=== PATIENT | male | born 1955 | race Caucasian/White ===

== ENCOUNTER 2016-11-13 06:43 | Outpatient (CLI) | payer OTHER ==
[~2016-11-13] VITALS: Ht 162.6 cm; Wt 83.6 kg
[2016-11-13] MEDS ORDERED: VEDOLIZUMAB 300 MG in NS 250 ML IV ONE (07:00)
[2016-11-13] MEDS ORDERED: BENA1TAB32 PO (08:40)
[2016-11-13] MEDS ORDERED: DICY10CA13 PO (08:40)
[2016-11-13] MEDS ORDERED: ENTOCORT PO (08:40)
[2016-11-13] MEDS ORDERED: NEXI40GR PO (08:40)
[2016-11-13] MEDS ORDERED: QUES4POW PO (08:40)
[2016-11-13] MEDS ORDERED: FLON1SPR (08:40)
[2016-11-13] MEDS ORDERED: TRAM50TA2 PO (08:40)
== END 2016-11-13 09:20 | disposition home or self-care (01) ==
LOC: M INFU 06:43
PROVIDERS: ATTEND Internal Medicine Nephrology
DX: K50.10 Crohn's disease of large intestine without complications (principal); K50.00 Crohn's disease of small intestine without complications; Z88.8 Allergy status to other drugs, medicaments and biological substances
CPT/HCPCS: 96413; 96415; J3380

== ENCOUNTER 2016-11-27 06:45 | Outpatient (CLI) | payer OTHER ==
[~2016-11-27] VITALS: Ht 162.6 cm; Wt 83.6 kg
[~2016-11-27 06:45] MED LIST: BENA1TAB32 PO; DICY10CA13 PO; ENTOCORT PO; FLON1SPR; NEXI40GR PO; QUES4POW PO; TRAM50TA2 PO
[2016-11-27] MEDS ORDERED: VEDOLIZUMAB 300 MG in NS 250 ML IV ONE (07:30)
== END 2016-11-27 08:15 | disposition home or self-care (01) ==
LOC: M INFU 06:45
PROVIDERS: ATTEND Internal Medicine
DX: K50.80 Crohn's disease of both small and large intestine without complications (principal); Z88.8 Allergy status to other drugs, medicaments and biological substances; Z79.899 Other long term (current) drug therapy; Z87.891 Personal history of nicotine dependence
CPT/HCPCS: 96413; J3380

== ENCOUNTER 2016-12-25 06:50 | Outpatient (CLI) | payer OTHER ==
[2016-12-25] MEDS ORDERED: VEDOLIZUMAB 300 MG in NS 250 ML IV ONE (07:30)
== END 2016-12-25 08:50 | disposition home or self-care (01) ==
LOC: M INFU 06:50
PROVIDERS: ATTEND General Practice
DX: K50.80 Crohn's disease of both small and large intestine without complications (principal); Z88.8 Allergy status to other drugs, medicaments and biological substances; Z87.891 Personal history of nicotine dependence; Z79.899 Other long term (current) drug therapy
CPT/HCPCS: 96413; J3380

== ENCOUNTER → 2016-12-30 | Outpatient (CLI) | payer OTHER ==
[2016-12-30 19:51] LABS: ALBUMIN 3.8 GM/DL (3.2-5.2); ALBUMIN/GLOBULIN RATIO 1.31 (1.00-1.93); ALKALINE PHOSPHATASE 130 U/L (45-117); ALT/SGPT 25 U/L (12-78); ANION GAP 6 MEQ/L (8-16); AST/SGOT 16 U/L (15-37); BILIRUBIN,TOTAL 0.3 MG/DL (0.2-1.0); BLOOD UREA NITROGEN 19 MG/DL (7-18); CALCIUM LEVEL 8.4 MG/DL (8.8-10.2); CARBON DIOXIDE LEVEL 27 MEQ/L (21-32); CHLORIDE LEVEL 107 MEQ/L (98-107); CHOLESTEROL LEVEL 208 MG/DL (<200); CREATININE FOR GFR 1.15 MG/DL (0.70-1.30); GLOMERULAR FILTRATION RATE > 60.0 (>49); GLUCOSE, FASTING 82 MG/DL (80-110); SODIUM LEVEL 140 MEQ/L (136-145); TOTAL PROTEIN 6.7 GM/DL (6.4-8.2); TRIGLYCERIDES LEVEL 358 MG/DL (<150)
== END ==
LOC: M WUC 17:59
PROVIDERS: ATTEND Emergency Medicine
DX: Z00.00 Encounter for general adult medical examination without abnormal findings (principal); I10 Essential (primary) hypertension; E78.2 Mixed hyperlipidemia; E55.9 Vitamin D deficiency, unspecified

== ENCOUNTER 2017-02-19 06:57 | Outpatient (CLI) | payer OTHER ==
[~2017-02-19] VITALS: Ht 162.6 cm; Wt 83.6 kg
[2017-02-19] MEDS ORDERED: VEDOLIZUMAB 300 MG in NS 250 ML IV ONE (07:30)
== END 2017-02-19 08:30 | disposition home or self-care (01) ==
LOC: M INFU 06:57
PROVIDERS: ATTEND Internal Medicine
DX: K50.10 Crohn's disease of large intestine without complications (principal); K50.00 Crohn's disease of small intestine without complications; Z87.891 Personal history of nicotine dependence; Z88.8 Allergy status to other drugs, medicaments and biological substances; Z79.899 Other long term (current) drug therapy
CPT/HCPCS: 96413; J3380

== ENCOUNTER → 2017-05-08 | Outpatient (CLI) | payer OTHER ==
[2017-05-08 17:56] LABS: BASO # 0.1 10^3/uL (0.0-0.2); BASO % 0.5 % (0.0-1.0); EOS # 0.2 10^3/uL (0.0-0.50); EOS % 1.8 % (0.0-3.0); IMMATURE GRANULOCYTE % 0.5 % (0-0); LYMPH # 1.8 10^3/uL (1.5-4.5); LYMPH % 16.3 % (24.0-44.0); MEAN CORPUSCULAR HEMOGLOBIN 31.2 pg (27.0-33.0); MEAN CORPUSCULAR HGB CONC 34.4 g/dl (32.0-36.5); MEAN CORPUSCULAR VOLUME 90.7 fl (80.0-96.0); MONO # 0.9 10^3/uL (0.0-0.8); MONO % 8.6 % (0.0-5.0); NEUTROPHILS # 7.9 10^3/uL (1.8-7.7); NEUTROPHILS % 72.3 % (36.0-66.0); PLATELET COUNT, AUTOMATED 263 10^3/uL (150-450); RED CELL DISTRIBUTION WIDTH 13.1 % (11.5-14.5); WHITE BLOOD COUNT 10.9 10^3/uL (4.0-10.0)
[2017-05-08 18:19] LABS: ALBUMIN 3.7 GM/DL (3.2-5.2); ALBUMIN/GLOBULIN RATIO 1.37 (1.00-1.93); ALKALINE PHOSPHATASE 152 U/L (45-117); ALT/SGPT 65 U/L (12-78); AST/SGOT 103 U/L (15-37); BILIRUBIN,DIRECT 0.5 MG/DL (0.0-0.2); BILIRUBIN,TOTAL 0.9 MG/DL (0.2-1.0); TOTAL PROTEIN 6.4 GM/DL (6.4-8.2)
== END ==
LOC: M WUC 12:02
PROVIDERS: ATTEND Internal Medicine Gastroenterology
DX: K60.3 Anal fistula (principal); K21.9 Gastro-esophageal reflux disease without esophagitis

== ENCOUNTER 2017-05-10 06:49 | Outpatient (CLI) | payer OTHER ==
[~2017-05-10] VITALS: Ht 162.6 cm; Wt 83.6 kg
[2017-05-10] MEDS: VEDOLIZUMAB 300 MG in NS 250 ML IV ONE (07:57)
== END 2017-05-10 09:15 | disposition home or self-care (01) ==
LOC: M INFU 06:49
PROVIDERS: ATTEND Hospitalist
DX: K50.00 Crohn's disease of small intestine without complications (principal); Z96.1 Presence of intraocular lens; Z88.8 Allergy status to other drugs, medicaments and biological substances; Z79.899 Other long term (current) drug therapy; Z87.891 Personal history of nicotine dependence
CPT/HCPCS: 96413; J3380

== ENCOUNTER → 2017-06-29 | Outpatient (CLI) | payer OTHER ==
[2017-06-29 20:17] LABS: ALBUMIN 3.8 GM/DL (3.2-5.2); ALBUMIN/GLOBULIN RATIO 1.23 (1.00-1.93); BILIRUBIN,DIRECT 0.1 MG/DL (0.0-0.2); BILIRUBIN,TOTAL 0.4 MG/DL (0.2-1.0); TOTAL PROTEIN 6.9 GM/DL (6.4-8.2)
== END ==
LOC: M WUC 18:16
PROVIDERS: ATTEND Internal Medicine Gastroenterology
DX: K50.00 Crohn's disease of small intestine without complications (principal)

== ENCOUNTER 2017-07-05 07:10 | Outpatient (CLI) | payer OTHER ==
[~2017-07-05] VITALS: Ht 162.6 cm; Wt 83.6 kg
[2017-07-05] MEDS ORDERED: VEDOLIZUMAB 300 MG in NS 250 ML IV ONE (08:00)
== END 2017-07-05 08:50 | disposition home or self-care (01) ==
LOC: M INFU 07:10
PROVIDERS: ATTEND Internal Medicine
DX: K50.00 Crohn's disease of small intestine without complications (principal); Z86.79 Personal history of other diseases of the circulatory system; Z87.19 Personal history of other diseases of the digestive system; Z96.1 Presence of intraocular lens; Z87.891 Personal history of nicotine dependence; Z88.8 Allergy status to other drugs, medicaments and biological substances; Z79.899 Other long term (current) drug therapy
CPT/HCPCS: 96365; J3380

== ENCOUNTER → 2017-08-12 | Outpatient (CLI) | payer OTHER | LOC: M SLEEP 19:43 | DX: G47.30 Sleep apnea, unspecified (principal) | CPT/HCPCS: 95810 ==

== ENCOUNTER → 2017-08-24 | Outpatient (CLI) | payer OTHER | LOC: M EKG 07:56 | DX: Z01.818 Encounter for other preprocedural examination (principal) ==

== ENCOUNTER 2017-09-02 07:12 | Outpatient (CLI) | payer OTHER ==
[2017-09-02] MEDS: VEDOLIZUMAB 300 MG in NS 250 ML IV (07:52)
== END 2017-09-02 08:35 | disposition home or self-care (01) ==
LOC: M INFU 07:12
DX: K50.00 Crohn's disease of small intestine without complications (principal); Z79.891 Long term (current) use of opiate analgesic; Z79.899 Other long term (current) drug therapy; Z88.8 Allergy status to other drugs, medicaments and biological substances
CPT/HCPCS: J3380

== ENCOUNTER → 2017-09-13 | Outpatient (CLI) | payer OTHER | LOC: M LAB 17:19 | DX: R19.7 Diarrhea, unspecified (principal) ==

== ENCOUNTER → 2017-09-14 | Outpatient (REF) | payer OTHER | LOC: M LAB REF 09:09 | DX: R19.7 Diarrhea, unspecified (principal) | CPT/HCPCS: 87493 ==

== ENCOUNTER → 2017-09-25 | Outpatient (CLI) | payer OTHER ==
[2017-09-28 14:14] LABS: QUANTIFERON GOLD TB Negative (Negative); TB Test (QFT) Antigen 0.04 IU/mL (.); TB Test (QFT) Antigen Minus Ni <0.01 IU/mL (.); TB Test (QFT) Mitogen >10.00 IU/mL (.); TB Test (QFT) Nil 0.05 IU/mL (.)
== END ==
LOC: M WUC 11:08
DX: K50.00 Crohn's disease of small intestine without complications (principal)
CPT/HCPCS: 36415

== ENCOUNTER → 2017-10-09 | Outpatient (CLI) | payer OTHER ==
[2017-10-09 17:17] LABS: BASO # 0.1 10^3/uL (0.0-0.2); BASO % 0.4 % (0.0-1.0); EOS # 0.2 10^3/uL (0.0-0.50); EOS % 1.4 % (0.0-3.0); HEMATOCRIT 36.8 % (42.0-52.0); HEMOGLOBIN 12.9 g/dl (14.0-18.0); IMMATURE GRANULOCYTE % 0.3 % (0-3.0); LYMPH # 1.4 10^3/uL (1.5-4.5); LYMPH % 10.5 % (24.0-44.0); MEAN CORPUSCULAR HEMOGLOBIN 31.4 pg (27.0-33.0); MEAN CORPUSCULAR HGB CONC 35.1 g/dl (32.0-36.5); MEAN CORPUSCULAR VOLUME 89.5 fl (80.0-96.0); MONO # 0.8 10^3/uL (0.0-0.8); NEUTROPHILS # 10.7 10^3/uL (1.8-7.7); NEUTROPHILS % 81.4 % (36.0-66.0); PLATELET COUNT, AUTOMATED 259 10^3/uL (150-450); RED BLOOD COUNT 4.11 10^6/uL (4.30-6.10); WHITE BLOOD COUNT 13.2 10^3/uL (4.0-10.0)
[2017-10-09 17:28] LABS: ALBUMIN/GLOBULIN RATIO 1.48 (1.00-1.93); ALKALINE PHOSPHATASE 105 U/L (45-117); ALT/SGPT 23 U/L (12-78); AST/SGOT 23 U/L (7-37); BILIRUBIN,DIRECT 0.1 MG/DL (0.0-0.2); BILIRUBIN,TOTAL 0.5 MG/DL (0.2-1.0); C REACTIVE PROTEIN QUANTITATIV 0.42 MG/DL (0.00-0.30); TOTAL PROTEIN 6.7 GM/DL (6.4-8.2)
[2017-10-11 10:33] LABS: TOTAL 25(OH) VITAMIN D 29.5 NG/ML (30.0-100.0); VITAMIN B12 LEVEL 459 PG/ML (247-911)
== END ==
LOC: M WUC 11:46
DX: K50.00 Crohn's disease of small intestine without complications (principal); K50.10 Crohn's disease of large intestine without complications; K60.3 Anal fistula; K21.9 Gastro-esophageal reflux disease without esophagitis; K76.0 Fatty (change of) liver, not elsewhere classified
CPT/HCPCS: 82607

== ENCOUNTER 2017-10-21 16:30 | Outpatient (CLI) | payer OTHER ==
[2017-10-21] MEDS: VEDOLIZUMAB 300 MG in NS 250 ML IV (17:08)
== END 2017-10-21 17:50 | disposition home or self-care (01) ==
LOC: M INFU 16:30
DX: K50.00 Crohn's disease of small intestine without complications (principal); I10 Essential (primary) hypertension; K44.9 Diaphragmatic hernia without obstruction or gangrene; Z79.891 Long term (current) use of opiate analgesic; Z79.899 Other long term (current) drug therapy; Z88.8 Allergy status to other drugs, medicaments and biological substances; Z87.891 Personal history of nicotine dependence
CPT/HCPCS: J3380

== ENCOUNTER 2017-12-02 06:51 | Outpatient (CLI) | payer OTHER ==
[2017-12-02] MEDS: VEDOLIZUMAB 300 MG in NS 250 ML IV (07:35)
== END 2017-12-02 08:25 | disposition home or self-care (01) ==
LOC: M INFU 06:51
DX: K50.90 Crohn's disease, unspecified, without complications (principal); I10 Essential (primary) hypertension; K44.9 Diaphragmatic hernia without obstruction or gangrene; D64.9 Anemia, unspecified; Z79.891 Long term (current) use of opiate analgesic; Z79.899 Other long term (current) drug therapy; Z88.8 Allergy status to other drugs, medicaments and biological substances; Z87.891 Personal history of nicotine dependence
CPT/HCPCS: J3380

== ENCOUNTER → 2018-01-08 | Outpatient (CLI) | payer OTHER ==
[2018-01-08 18:15] LABS: ALBUMIN 3.8 GM/DL (3.2-5.2); ALBUMIN/GLOBULIN RATIO 1.27 (1.00-1.93); ALKALINE PHOSPHATASE 104 U/L (45-117); ALT/SGPT 24 U/L (12-78); ANION GAP 9 MEQ/L (8-16); AST/SGOT 20 U/L (7-37); BILIRUBIN,TOTAL 0.5 MG/DL (0.2-1.0); BLOOD UREA NITROGEN 18 MG/DL (7-18); CALCIUM LEVEL 8.6 MG/DL (8.8-10.2); CARBON DIOXIDE LEVEL 28 MEQ/L (21-32); CHLORIDE LEVEL 104 MEQ/L (98-107); CHOLESTEROL LEVEL 174 MG/DL (<200); CHOLESTEROL RISK RATIO 3.625 (<5); GLOMERULAR FILTRATION RATE 59.4 (>49); GLUCOSE, FASTING 84 MG/DL (70-100); HDL CHOLESTEROL 48 MG/DL (>40); LDL CHOLESTEROL 63.2 MG/DL (<100); NON-HDL-C 126 MG/DL; POTASSIUM SERUM 4.1 MEQ/L (3.5-5.1); SODIUM LEVEL 141 MEQ/L (136-145); TOTAL PROTEIN 6.8 GM/DL (6.4-8.2); TRIGLYCERIDES LEVEL 314 MG/DL (<150)
[2018-01-10 10:05] LABS: TOTAL 25(OH) VITAMIN D 31.4 NG/ML (30.0-100.0)
== END ==
LOC: M WUC 11:30
DX: I10 Essential (primary) hypertension (principal); E78.2 Mixed hyperlipidemia; E55.9 Vitamin D deficiency, unspecified
CPT/HCPCS: 80053

== ENCOUNTER 2018-01-13 07:01 | Outpatient (CLI) | payer OTHER ==
[2018-01-13] MEDS: VEDOLIZUMAB 300 MG in NS 250 ML IV (08:04)
== END 2018-01-13 08:40 | disposition home or self-care (01) ==
LOC: M INFU 07:01
DX: K50.00 Crohn's disease of small intestine without complications (principal); I10 Essential (primary) hypertension; K44.9 Diaphragmatic hernia without obstruction or gangrene; K21.9 Gastro-esophageal reflux disease without esophagitis; Z79.899 Other long term (current) drug therapy; Z79.891 Long term (current) use of opiate analgesic; Z88.8 Allergy status to other drugs, medicaments and biological substances; Z87.891 Personal history of nicotine dependence
CPT/HCPCS: J3380

== ENCOUNTER 2018-02-24 07:12 | Outpatient (CLI) | payer OTHER ==
[2018-02-24] MEDS: VEDOLIZUMAB 300 MG in NS 250 ML IV (08:20)
== END 2018-02-24 09:15 | disposition home or self-care (01) ==
LOC: M INFU 07:12
DX: K50.00 Crohn's disease of small intestine without complications (principal); Z79.899 Other long term (current) drug therapy; Z88.8 Allergy status to other drugs, medicaments and biological substances
CPT/HCPCS: J3380

== ENCOUNTER 2018-04-07 06:50 | Outpatient (CLI) | payer OTHER ==
[2018-04-07] MEDS: VEDOLIZUMAB 300 MG in NS 250 ML IV (07:44)
== END 2018-04-07 08:30 | disposition home or self-care (01) ==
LOC: M INFU 06:50
DX: K50.80 Crohn's disease of both small and large intestine without complications (principal); K44.9 Diaphragmatic hernia without obstruction or gangrene; K76.0 Fatty (change of) liver, not elsewhere classified; D50.9 Iron deficiency anemia, unspecified; M12.9 Arthropathy, unspecified; Z79.891 Long term (current) use of opiate analgesic; Z79.899 Other long term (current) drug therapy; Z88.8 Allergy status to other drugs, medicaments and biological substances; Z90.49 Acquired absence of other specified parts of digestive tract; Z87.19 Personal history of other diseases of the digestive system
CPT/HCPCS: J3380

== ENCOUNTER 2018-05-19 06:53 | Outpatient (CLI) | payer OTHER ==
[2018-05-19] MEDS: VEDOLIZUMAB 300 MG in NS 250 ML IV (08:05)
== END 2018-05-19 08:50 | disposition home or self-care (01) ==
LOC: M INFU 06:53
DX: K50.00 Crohn's disease of small intestine without complications (principal); Z79.899 Other long term (current) drug therapy; Z88.8 Allergy status to other drugs, medicaments and biological substances
CPT/HCPCS: J3380

== ENCOUNTER → 2018-05-23 | Outpatient (CLI) | payer OTHER ==
[2018-05-23 19:46] LABS: BASO % 0.3 % (0.0-1.0); EOS # 0.5 10^3/uL (0.0-0.50); EOS % 4.5 % (0.0-3.0); HEMATOCRIT 36.1 % (42.0-52.0); HEMOGLOBIN 12.7 g/dl (13.5-17.5); IMMATURE GRANULOCYTE % 0.5 % (0-3.0); LYMPH % 8.6 % (24.0-44.0); MEAN CORPUSCULAR HEMOGLOBIN 31.2 pg (27.0-33.0); MEAN CORPUSCULAR HGB CONC 35.2 g/dl (32.0-36.5); MEAN CORPUSCULAR VOLUME 88.7 fl (80.0-96.0); MONO % 9.3 % (0.0-5.0); NEUTROPHILS # 8.5 10^3/uL (1.8-7.7); NEUTROPHILS % 76.8 % (36.0-66.0); PLATELET COUNT, AUTOMATED 207 10^3/uL (150-450); RED BLOOD COUNT 4.07 10^6/uL (4.30-6.10); RED CELL DISTRIBUTION WIDTH 12.8 % (11.5-14.5); WHITE BLOOD COUNT 11.1 10^3/uL (4.0-10.0)
[2018-05-23 19:58] LABS: ALBUMIN 3.6 GM/DL (3.2-5.2); ALBUMIN/GLOBULIN RATIO 1.13 (1.00-1.93); ALKALINE PHOSPHATASE 109 U/L (45-117); ALT/SGPT 29 U/L (12-78); AST/SGOT 24 U/L (7-37); BILIRUBIN,DIRECT 0.2 MG/DL (0.0-0.2); BILIRUBIN,TOTAL 0.8 MG/DL (0.2-1.0); C REACTIVE PROTEIN QUANTITATIV 3.98 MG/DL (0.00-0.30); TOTAL PROTEIN 6.8 GM/DL (6.4-8.2)
[2018-05-23 20:07] LABS: ERYTHROCYTE SEDIMENTATION RATE 26 mm/hr (0-20)
[2018-05-24 14:40] LABS: ANION GAP 10 MEQ/L (8-16); BLOOD UREA NITROGEN 17 MG/DL (7-18); CALCIUM LEVEL 8.7 MG/DL (8.8-10.2); CARBON DIOXIDE LEVEL 26 MEQ/L (21-32); CHLORIDE LEVEL 100 MEQ/L (98-107); CREATININE FOR GFR 1.33 MG/DL (0.70-1.30); GLOMERULAR FILTRATION RATE 57.6 (>49); GLUCOSE, FASTING 112 MG/DL (70-100); POTASSIUM SERUM 3.7 MEQ/L (3.5-5.1); SODIUM LEVEL 136 MEQ/L (136-145)
== END ==
LOC: M WUC 18:08
DX: K50.00 Crohn's disease of small intestine without complications (principal)
CPT/HCPCS: 80076

== ENCOUNTER → 2018-05-25 | Outpatient (REF) | payer OTHER | LOC: M LAB REF 09:16 | DX: K50.00 Crohn's disease of small intestine without complications (principal) | CPT/HCPCS: 83993 ==

== ENCOUNTER 2018-06-30 06:58 | Outpatient (CLI) | payer OTHER ==
[2018-06-30] MEDS: VEDOLIZUMAB 300 MG in NS 250 ML IV (07:32)
== END 2018-06-30 08:15 | disposition home or self-care (01) ==
LOC: M INFU 06:58
DX: K50.00 Crohn's disease of small intestine without complications (principal); Z88.8 Allergy status to other drugs, medicaments and biological substances
CPT/HCPCS: J3380

== ENCOUNTER → 2018-07-15 | Outpatient (CLI) | payer OTHER ==
[~2018-07-15] MED LIST changes: +CENTTAB16 PO; +PROSCAP PO; +PROTPAK PO; +VITA200016 PO; +VITA500C19 PO; +[UNRECOGNIZED DRUG - OTHER] PO; +[UNRECOGNIZED DRUG - OTHER] PO
[2018-07-15 14:18] LABS: BASO % 0.4 % (0.0-1.0); EOS # 0.4 10^3/uL (0.0-0.50); EOS % 3.6 % (0.0-3.0); HEMATOCRIT 36.1 % (42.0-52.0); HEMOGLOBIN 12.6 g/dl (13.5-17.5); LYMPH # 1.9 10^3/uL (1.5-4.5); LYMPH % 18.1 % (24.0-44.0); MEAN CORPUSCULAR HEMOGLOBIN 31.2 pg (27.0-33.0); MEAN CORPUSCULAR HGB CONC 34.9 g/dl (32.0-36.5); MEAN CORPUSCULAR VOLUME 89.4 fl (80.0-96.0); MONO # 0.7 10^3/uL (0.0-0.8); MONO % 6.3 % (0.0-5.0); NEUTROPHILS # 7.3 10^3/uL (1.8-7.7); NEUTROPHILS % 70.9 % (36.0-66.0); PLATELET COUNT, AUTOMATED 252 10^3/uL (150-450); RED BLOOD COUNT 4.04 10^6/uL (4.30-6.10); WHITE BLOOD COUNT 10.3 10^3/uL (4.0-10.0)
[2018-07-15 14:48] LABS: BLOOD UREA NITROGEN 17 MG/DL (7-18); CALCIUM LEVEL 8.6 MG/DL (8.8-10.2); CARBON DIOXIDE LEVEL 27 MEQ/L (21-32); CHLORIDE LEVEL 103 MEQ/L (98-107); CREATININE FOR GFR 1.15 MG/DL (0.70-1.30); GLOMERULAR FILTRATION RATE > 60.0 (>49); GLUCOSE, FASTING 87 MG/DL (70-100); POTASSIUM SERUM 4.1 MEQ/L (3.5-5.1); SODIUM LEVEL 139 MEQ/L (136-145)
== END ==
LOC: M WUC 13:08
PROVIDERS: ATTEND Family Medicine
DX: N17.9 Acute kidney failure, unspecified (principal)

== ENCOUNTER 2018-08-11 06:51 | Outpatient (CLI) | payer OTHER ==
[~2018-08-11] VITALS: Ht 162.6 cm; Wt 83.6 kg
[2018-08-11 07:00] VITALS: BP 143/67
[2018-08-11] MEDS ORDERED: VEDOLIZUMAB 300 MG in NS 250 ML IV ONE (08:00)
[2018-08-11 08:38] VITALS: BP 132/70
== END 2018-08-11 08:40 | disposition home or self-care (01) ==
LOC: M INFU 06:51
PROVIDERS: ATTEND Internal Medicine
DX: K50.00 Crohn's disease of small intestine without complications (principal); Z88.8 Allergy status to other drugs, medicaments and biological substances

== ENCOUNTER → 2018-08-18 | Outpatient (CLI) | payer OTHER ==
[2018-08-18 20:30] LABS: BASO % 0.4 % (0.0-1.0); EOS # 0.3 10^3/uL (0.0-0.50); EOS % 2.7 % (0.0-3.0); HEMATOCRIT 37.9 % (42.0-52.0); HEMOGLOBIN 12.8 g/dl (13.5-17.5); LYMPH # 1.8 10^3/uL (1.5-4.5); LYMPH % 18.8 % (24.0-44.0); MEAN CORPUSCULAR HEMOGLOBIN 30.8 pg (27.0-33.0); MEAN CORPUSCULAR HGB CONC 33.8 g/dl (32.0-36.5); MEAN CORPUSCULAR VOLUME 91.1 fl (80.0-96.0); MONO # 0.8 10^3/uL (0.0-0.8); MONO % 8.2 % (0.0-5.0); NEUTROPHILS # 6.5 10^3/uL (1.8-7.7); NEUTROPHILS % 69.3 % (36.0-66.0); PLATELET COUNT, AUTOMATED 295 10^3/uL (150-450); RED BLOOD COUNT 4.16 10^6/uL (4.30-6.10); WHITE BLOOD COUNT 9.5 10^3/uL (4.0-10.0)
[2018-08-18 20:33] LABS: ALBUMIN 3.8 GM/DL (3.2-5.2); BILIRUBIN,DIRECT 0.1 MG/DL (0.0-0.2); BILIRUBIN,TOTAL 0.4 MG/DL (0.2-1.0); C REACTIVE PROTEIN QUANTITATIV 0.63 MG/DL (0.00-0.30); TOTAL PROTEIN 6.6 GM/DL (6.4-8.2)
[2018-08-18 20:42] LABS: TOTAL 25(OH) VITAMIN D 34.8 NG/ML (30.0-100.0)
== END ==
LOC: M WUC 18:11
PROVIDERS: ATTEND Internal Medicine Gastroenterology
DX: K50.00 Crohn's disease of small intestine without complications (principal); K21.9 Gastro-esophageal reflux disease without esophagitis

== ENCOUNTER 2018-09-22 07:00 | Outpatient (CLI) | payer OTHER ==
[~2018-09-22] VITALS: Ht 161.3 cm; Wt 83.6 kg
[2018-09-22 07:05] VITALS: BP 150/66
[2018-09-22] MEDS ORDERED: VEDOLIZUMAB 300 MG in NS 250 ML IV ONE (07:15)
[2018-09-22 08:25] VITALS: BP 137/71
== END 2018-09-22 08:30 | disposition home or self-care (01) ==
LOC: M INFU 07:00
PROVIDERS: ATTEND Internal Medicine
DX: K50.00 Crohn's disease of small intestine without complications (principal); Z88.8 Allergy status to other drugs, medicaments and biological substances
CPT/HCPCS: 96365; J3380

== ENCOUNTER 2019-01-24 17:11 | Outpatient (CLI) | payer OTHER ==
[~2019-01-24] VITALS: Ht 162.6 cm; Wt 81.0 kg
[2019-01-24] MEDS ORDERED: VEDOLIZUMAB 300 MG in NS 250 ML IV ONE (17:15)
[2019-01-24 17:54] VITALS: BP 142/69
[2019-01-24 18:18] VITALS: BP 136/73
== END 2019-01-24 18:20 | disposition home or self-care (01) ==
LOC: M INFU 17:11
PROVIDERS: ATTEND Internal Medicine Gastroenterology
DX: K50.00 Crohn's disease of small intestine without complications (principal); Z88.8 Allergy status to other drugs, medicaments and biological substances
CPT/HCPCS: 96365; J3380

== ENCOUNTER 2019-02-18 09:58 | Emergency (ER) | payer OTHER ==
[~2019-02-18] VITALS: Ht 165.1 cm; Wt 81.8 kg
[2019-02-18] MEDS ORDERED: MINO100C4 (10:04)
[2019-02-18] MEDS ORDERED: K-TA10TA2 PO (10:04)
[2019-02-18] MEDS ORDERED: COLC1TAB13 PO (11:04)
[2019-02-18 11:08] VITALS: BP 130/68
== END 2019-02-18 11:15 | disposition home or self-care (01) ==
LOC: M ED 09:58
DX: M79.675 Pain in left toe(s) (principal); I10 Essential (primary) hypertension; K50.90 Crohn's disease, unspecified, without complications; K76.0 Fatty (change of) liver, not elsewhere classified; K21.9 Gastro-esophageal reflux disease without esophagitis; Z79.899 Other long term (current) drug therapy; Z88.8 Allergy status to other drugs, medicaments and biological substances

== ENCOUNTER → 2019-02-20 | Outpatient (CLI) | payer OTHER ==
[~2019-02-20] MED LIST changes: +COLC1TAB13 PO; +K-TA10TA2 PO; +MINO100C4
--- NOTE | 2019-02-20 18:41 | REP ---
Clinical: Pain. Doubt. Technique: AP, lateral, bilateral oblique views of the left foot. Findings: Osseous structures, joint spaces and surrounding soft tissues are relatively normal for age and without overt osteoarthritic or inflammatory arthritic changes. No periarticular erosive changes or soft tissue swelling and no chondrocalcinosis identified. Known foreign body. Impression: Mild age-related changes. Electronically Signed by Mandeep Reed MD 02/20/2019 06:32 P
== END ==
LOC: M WUC 17:40
PROVIDERS: ATTEND Nurse Practitioner Family
DX: M10.9 Gout, unspecified (principal)

== ENCOUNTER → 2019-03-02 | Outpatient (CLI) | payer OTHER ==
[~2019-03-02] MED LIST changes: +BENA40TA PO; +BUDE3CAP PO; +ENTY1INJ IV; +FLAG500T PO; +IRON65TA2 PO; +MAGN400C PO; +PROS5TAB PO
[2019-03-02 07:18] LABS: HEMATOCRIT 35.8 % (42.0-52.0); HEMOGLOBIN 12.6 g/dl (13.5-17.5); MEAN CORPUSCULAR HGB CONC 35.2 g/dl (32.0-36.5); PLATELET COUNT, AUTOMATED 226 10^3/uL (150-450); RED BLOOD COUNT 4.07 10^6/uL (4.30-6.10); WHITE BLOOD COUNT 9.2 10^3/uL (4.0-10.0)
[2019-03-02 07:51] LABS: ALBUMIN 3.5 GM/DL (3.2-5.2); BILIRUBIN,TOTAL 0.6 MG/DL (0.2-1.0); CALCIUM LEVEL 8.8 MG/DL (8.8-10.2); CHOLESTEROL RISK RATIO 3.282 (<5); CREATININE FOR GFR 1.3 MG/DL (0.70-1.30); GLOMERULAR FILTRATION RATE 59.2 (>49); POTASSIUM SERUM 4.1 MEQ/L (3.5-5.1); PROSTATIC SPECIFIC AG MONITOR 8.75 NG/ML (< 4.00); TOTAL PROTEIN 6.4 GM/DL (6.4-8.2)
== END ==
LOC: M LAB 06:47
PROVIDERS: ATTEND Nurse Practitioner Family
DX: I10 Essential (primary) hypertension (principal); Z12.5 Encounter for screening for malignant neoplasm of prostate

== ENCOUNTER 2019-03-07 17:13 | Outpatient (CLI) | payer OTHER ==
[~2019-03-07] VITALS: Ht 162.6 cm; Wt 81.8 kg
[~2019-03-07 17:13] MED LIST changes: -BENA40TA PO; -BUDE3CAP PO; -ENTY1INJ IV; -FLAG500T PO; -IRON65TA2 PO; -MAGN400C PO; -PROS5TAB PO
[2019-03-07] MEDS ORDERED: VEDOLIZUMAB 300 MG in NS 250 ML IV ONE (17:30)
[2019-03-07 17:37] VITALS: BP 126/62
[2019-03-07 18:19] VITALS: BP 126/66
== END 2019-03-07 18:25 | disposition home or self-care (01) ==
LOC: M INFU 17:13
PROVIDERS: ATTEND Internal Medicine Gastroenterology
DX: K50.00 Crohn's disease of small intestine without complications (principal); Z88.8 Allergy status to other drugs, medicaments and biological substances
CPT/HCPCS: 96365; J3380

== ENCOUNTER → 2019-03-20 | Outpatient (REF) | payer OTHER ==
[~2019-03-20] MED LIST changes: +BUDE3CAP PO; +FLAG500T PO
== END ==
LOC: M SMT 17:01
PROVIDERS: ATTEND Nurse Practitioner Family
DX: R97.20 Elevated prostate specific antigen [PSA] (principal)
CPT/HCPCS: 51798; 87086; G0463

== ENCOUNTER 2019-03-30 08:08 | Emergency (ER) | payer MEDICARE, OTHER ==
[~2019-03-30] VITALS: Ht 162.6 cm; Wt 84.0 kg
[~2019-03-30 08:08] MED LIST changes: -BUDE3CAP PO; -FLAG500T PO
[2019-03-30] MEDS ORDERED: NS 1,000 ML IV ONE (09:00)
[2019-03-30] MEDS ORDERED: ONDANSETRON 4MG/2ML VIAL (J2405) IV PRN (09:00)
[2019-03-30 09:06] LABS: HEMOGLOBIN 13.1 g/dl (13.5-17.5); MEAN CORPUSCULAR HEMOGLOBIN 31.2 pg (27.0-33.0); MEAN CORPUSCULAR HGB CONC 35.4 g/dl (32.0-36.5); MEAN CORPUSCULAR VOLUME 88.1 fl (80.0-96.0); PLATELET COUNT, AUTOMATED 190 10^3/uL (150-450); WHITE BLOOD COUNT 9.7 10^3/uL (4.0-10.0)
[2019-03-30 09:26] LABS: EOSINOPHILS 6 % (0-3); LYMPHOCYTES 9 % (16-44); MONOCYTES 7 % (0-5); NEUTROPHILS 53 % (28-66); PLATELET ESTIMATE NORMAL (NORMAL)
[2019-03-30 09:27] LABS: ANISOCYTOSIS 1+
[2019-03-30 09:40] LABS: ALBUMIN 3.3 GM/DL (3.2-5.2); BILIRUBIN,DIRECT 0.5 MG/DL (0.0-0.2); BILIRUBIN,TOTAL 1.3 MG/DL (0.2-1.0); CALCIUM LEVEL 8.5 MG/DL (8.8-10.2); CREATININE FOR GFR 1.99 MG/DL (0.70-1.30); GLOMERULAR FILTRATION RATE 36.2 (>49); POTASSIUM SERUM 3.6 MEQ/L (3.5-5.1); TOTAL PROTEIN 6.6 GM/DL (6.4-8.2)
[2019-03-30] MEDS ORDERED: PIPERACILLIN/TAZOBACTAM SOD 4.5 GM in D5W MINI-BAG PLUS 50 ML IV ONE (10:00)
[2019-03-30] MEDS: GASTROGRAFIN SOLUTION 30ML PO SCH ×2 (10:38→11:16)
--- NOTE | 2019-03-30 12:18 | REP ---
Clinical: Abdominal pain with history of Crohn disease. Technique: Axial images from the lung bases to the pubic symphysis using oral contrast as per protocol. Coronal and sagittal re-formations obtained. Comparison: 05/25/2019. Findings: Lung bases demonstrate minimal chronic changes. Mild fatty infiltration to the liver suggested. Spleen, pancreas, gallbladder, bilateral adrenal glands and right kidney are normal. Left kidney includes 12 mm lower pole nonobstructing calculus. The enteric system demonstrates segment segment of small bowel with mucosal thickening in the right mid/lower abdomen (images [id number]) along with very subtle mesenteric stranding and mildly prominent mesenteric lymph nodes which may represent a mild acute Crohn's flare-up. No associated perienteric stranding or obstruction. No free air or free fluid/drainable collection noted. Pelvis demonstrates enlarged prostate gland measuring approximately 4.5 cm maximal diameter with mass effect on the base of the bladder. No ascites. No free air. No retroperitoneal adenopathy. Abdominal aorta without aneurysm. Musculoskeletal structures demonstrate degenerative changes without focal abnormality. Impression: 1. Cannot exclude a mild/early Crohn's flare-up involving the loop of small bowel in the right lower abdomen. 2. Stable 12 mm nonobstructing left renal calculus. Electronically Signed by Mandeep Reed MD 03/30/2019 12:10 P
[2019-03-30] MEDS ORDERED: methylPREDNISolone INJ 125 MG/2 ML VIAL (J2930) IV ONE (13:00)
[2019-03-30] MEDS ORDERED: metroNIDAZOLE 500 MG in IV 1 EA IV ONE (13:00)
[2019-03-30 15:39] LABS: HEMATOCRIT 32.8 % (42.0-52.0); HEMOGLOBIN 11.6 g/dl (13.5-17.5); MEAN CORPUSCULAR HEMOGLOBIN 31.4 pg (27.0-33.0); MEAN CORPUSCULAR HGB CONC 35.4 g/dl (32.0-36.5); MEAN CORPUSCULAR VOLUME 88.6 fl (80.0-96.0); PLATELET COUNT, AUTOMATED 165 10^3/uL (150-450)
[2019-03-30 16:03] LABS: EOSINOPHILS 6 % (0-3); LYMPHOCYTES 4 % (16-44); METAMYELOCYTES 2 % (0-0); MONOCYTES 4 % (0-5); NEUTROPHILS 75 % (28-66); PLATELET ESTIMATE NORMAL (NORMAL)
[2019-03-30 16:04] LABS: OVALOCYTES 1+
[2019-03-30] MEDS ORDERED: BUDE3CAP PO (16:38)
[2019-03-30] MEDS ORDERED: FLAG500T PO (16:38)
[2019-03-30 17:09] VITALS: BP 130/60
== END 2019-03-30 17:11 | disposition home or self-care (01) ==
LOC: M ED 08:08
DX: K50.919 Crohn's disease, unspecified, with unspecified complications (principal); E86.0 Dehydration; N20.0 Calculus of kidney; D50.9 Iron deficiency anemia, unspecified; I10 Essential (primary) hypertension; K21.9 Gastro-esophageal reflux disease without esophagitis; Z79.899 Other long term (current) drug therapy; Z88.8 Allergy status to other drugs, medicaments and biological substances
CPT/HCPCS: 74176; 80048; 80076; 83605; 83690; 85025; 87040; 87507; 93041; 96360; 96365; 96366; 96367; 96375; 99284; J2405; J2543; J2930; Q9963

== ENCOUNTER 2019-04-21 16:58 | Outpatient (CLI) | payer MEDICARE, OTHER ==
[~2019-04-21] VITALS: Ht 162.6 cm; Wt 83.2 kg
[~2019-04-21 16:58] MED LIST changes: +BUDE3CAP PO; +FLAG500T PO
[2019-04-21 17:09] VITALS: BP 143/73
[2019-04-21] MEDS ORDERED: PROS5TAB PO (17:21)
[2019-04-21] MEDS ORDERED: VEDOLIZUMAB 300 MG in NS 250 ML IV ONE (17:45)
[2019-04-21 18:40] VITALS: BP 150/76
== END 2019-04-21 18:43 | disposition home or self-care (01) ==
LOC: M INFU 16:58
PROVIDERS: ATTEND Internal Medicine Gastroenterology
DX: K50.00 Crohn's disease of small intestine without complications (principal)
CPT/HCPCS: 96365; J3380

== ENCOUNTER 2019-06-27 06:47 | Outpatient (CLI) | payer MEDICARE, OTHER ==
[~2019-06-27] VITALS: Ht 162.6 cm; Wt 63.0 kg
[~2019-06-27 06:47] MED LIST changes: +PROS5TAB PO
[2019-06-27 07:00] VITALS: BP 122/58
[2019-06-27] MEDS ORDERED: HYDROCORTISONE 100 MG/2 ML VIAL (J1720 PER 1) IV ONE (07:00)
[2019-06-27] MEDS ORDERED: diphenhydrAMINE 25 MG CAP PO ONE (07:00)
[2019-06-27] MEDS ORDERED: VEDOLIZUMAB 300 MG in NS 250 ML IV ONE (07:00)
[2019-06-27] MEDS ORDERED: diphenhydrAMINE INJ 50MG/ML VIAL (J1200) IV ONE (07:30)
[2019-06-27] MEDS ORDERED: BENA40TA PO (07:46)
[2019-06-27] MEDS ORDERED: IRON65TA2 PO (07:50)
[2019-06-27] MEDS ORDERED: MAGN400C PO (07:51)
[2019-06-27] MEDS ORDERED: ENTY1INJ IV (07:52)
[2019-06-27 08:45] VITALS: BP 131/69
[2019-06-27 09:10] VITALS: BP 128/72
== END 2019-06-27 09:10 | disposition home or self-care (01) ==
LOC: M INFU 06:47
PROVIDERS: ATTEND Internal Medicine Gastroenterology
DX: K50.90 Crohn's disease, unspecified, without complications (principal); Z88.8 Allergy status to other drugs, medicaments and biological substances
CPT/HCPCS: 96365; 96375; J1200; J1720; J3380

== ENCOUNTER 2019-08-08 06:42 | Outpatient (CLI) | payer MEDICARE, OTHER ==
[~2019-08-08] VITALS: Ht 162.6 cm; Wt 83.2 kg
[~2019-08-08 06:42] MED LIST changes: +BENA40TA PO; +ENTY1INJ IV; +IRON65TA2 PO; +MAGN400C PO
[2019-08-08 07:06] VITALS: BP 126/62
[2019-08-08] MEDS ORDERED: VEDOLIZUMAB 300 MG in NS 250 ML IV ONE (07:30)
[2019-08-08 07:58] VITALS: BP 129/60
== END 2019-08-08 08:00 | disposition home or self-care (01) ==
LOC: M INFU 06:42
PROVIDERS: ATTEND Internal Medicine Gastroenterology
DX: K50.00 Crohn's disease of small intestine without complications (principal); Z88.8 Allergy status to other drugs, medicaments and biological substances; Z88.9 Allergy status to unspecified drugs, medicaments and biological substances
CPT/HCPCS: 96365; J3380

== ENCOUNTER 2019-09-19 06:45 | Outpatient (CLI) | payer MEDICARE, OTHER ==
[~2019-09-19] VITALS: Ht 162.6 cm; Wt 83.2 kg
[2019-09-19] MEDS ORDERED: HYDROCORTISONE 100 MG/2 ML VIAL (J1720 PER 1) IV ONE (07:00)
[2019-09-19] MEDS ORDERED: diphenhydrAMINE INJ 50MG/ML VIAL (J1200) IV ONE (07:00)
[2019-09-19 07:06] VITALS: BP 151/65
[2019-09-19] MEDS ORDERED: VEDOLIZUMAB 300 MG in NS 250 ML IV ONE (07:30)
[2019-09-19 08:01] VITALS: BP 126/69
== END 2019-09-19 08:00 | disposition home or self-care (01) ==
LOC: M INFU 06:45
PROVIDERS: ATTEND Internal Medicine Gastroenterology
DX: K50.90 Crohn's disease, unspecified, without complications (principal); Z88.9 Allergy status to unspecified drugs, medicaments and biological substances
CPT/HCPCS: 96365; J3380

== ENCOUNTER 2019-10-31 16:35 | Outpatient (CLI) | payer MEDICARE, OTHER ==
[~2019-10-31] VITALS: Ht 162.6 cm; Wt 83.2 kg
[2019-10-31 16:46] VITALS: BP 140/63
[2019-10-31] MEDS ORDERED: diphenhydrAMINE 50MG/ML VIAL (J1200) IV ONE (17:00)
[2019-10-31] MEDS ORDERED: HYDROCORTISONE 100 MG/2 ML VIAL (J1720 PER 1) IV ONE (17:00)
[2019-10-31] MEDS ORDERED: VEDOLIZUMAB 300 MG in NS 250 ML IV ONE (17:30)
[2019-10-31 17:43] VITALS: BP 123/68
== END 2019-10-31 17:40 | disposition home or self-care (01) ==
LOC: M INFU 16:35
PROVIDERS: ATTEND Internal Medicine Gastroenterology
DX: K50.00 Crohn's disease of small intestine without complications (principal)
CPT/HCPCS: 96365; J3380

== ENCOUNTER 2019-12-12 16:35 | Outpatient (CLI) | payer MEDICARE, OTHER ==
[~2019-12-12] VITALS: Ht 162.6 cm; Wt 83.2 kg
[2019-12-12 16:56] VITALS: BP 125/60
[2019-12-12] MEDS ORDERED: HYDROCORTISONE 100 MG/2 ML VIAL (J1720 PER 1) IV ONE (17:00)
[2019-12-12] MEDS ORDERED: diphenhydrAMINE 50MG/ML VIAL (J1200) IV ONE (17:00)
[2019-12-12] MEDS ORDERED: VEDOLIZUMAB 300 MG in NS 250 ML IV ONE (17:30)
[2019-12-12 17:42] VITALS: BP 147/69
== END 2019-12-12 17:45 ==
LOC: M INFU 16:35
PROVIDERS: ATTEND Internal Medicine Gastroenterology
DX: K50.90 Crohn's disease, unspecified, without complications (principal); Z88.8 Allergy status to other drugs, medicaments and biological substances
CPT/HCPCS: 96365; J3380

== ENCOUNTER 2020-01-23 16:20 | Outpatient (CLI) | payer MEDICARE, OTHER ==
[~2020-01-23] VITALS: Ht 162.6 cm; Wt 84.1 kg
[2020-01-23 16:45] VITALS: BP 141/63
[2020-01-23] MEDS ORDERED: diphenhydrAMINE 50MG/ML VIAL (J1200) IV ONE (17:15)
[2020-01-23] MEDS ORDERED: VEDOLIZUMAB 300 MG in NS 250 ML IV ONE (17:15)
[2020-01-23] MEDS ORDERED: HYDROCORTISONE 100 MG/2 ML VIAL (J1720 PER 1) IV ONE (17:15)
[2020-01-23] MEDS ORDERED: LASI20TA3 PO (17:38)
[2020-01-23 18:13] VITALS: BP 121/64
== END 2020-01-23 18:13 | disposition home or self-care (01) ==
LOC: M INFU 16:20
PROVIDERS: ATTEND Internal Medicine Gastroenterology
DX: K50.00 Crohn's disease of small intestine without complications (principal); Z88.8 Allergy status to other drugs, medicaments and biological substances
CPT/HCPCS: 96365; J3380

== ENCOUNTER 2020-03-05 17:05 | Outpatient (CLI) | payer MEDICARE, OTHER ==
[~2020-03-05 17:05] MED LIST changes: +LASI20TA3 PO; +VEDOLIZUMAB 300MG VIAL (ENTYVIO) (J3380 PER 1MG) ONE
== END 2020-03-05 18:10 ==
LOC: M INFU 17:05
PROVIDERS: ATTEND Internal Medicine Gastroenterology
DX: K50.00 Crohn's disease of small intestine without complications (principal)
CPT/HCPCS: 96365; J3380

== ENCOUNTER 2020-04-17 16:57 | Outpatient (CLI) | payer MEDICARE, OTHER ==
[~2020-04-17] VITALS: Ht 162.6 cm; Wt 85.5 kg
[~2020-04-17 16:57] MED LIST changes: -VEDOLIZUMAB 300MG VIAL (ENTYVIO) (J3380 PER 1MG) ONE
[2020-04-17] MEDS ORDERED: HYDROCORTISONE 100 MG/2 ML VIAL (J1720 PER 1) IV ONE (17:00)
[2020-04-17] MEDS ORDERED: VEDOLIZUMAB 300 MG in NS 250 ML IV ONE (17:00)
[2020-04-17] MEDS ORDERED: diphenhydrAMINE 50MG/ML VIAL (J1200) IV ONE (17:00)
[2020-04-17 17:03] VITALS: BP 138/61
[2020-04-17 18:05] VITALS: BP 119/60
== END 2020-04-17 18:05 | disposition home or self-care (01) ==
LOC: M INFU 16:57
PROVIDERS: ATTEND Internal Medicine Gastroenterology
DX: K50.90 Crohn's disease, unspecified, without complications (principal)
CPT/HCPCS: 96365; J3380

== ENCOUNTER 2020-05-29 16:34 | Outpatient (CLI) | payer MEDICARE, OTHER ==
[~2020-05-29] VITALS: Ht 162.6 cm; Wt 85.3 kg
[2020-05-29] MEDS ORDERED: diphenhydrAMINE 50MG/ML VIAL (J1200) IV ONE (17:00)
[2020-05-29] MEDS ORDERED: HYDROCORTISONE 100 MG/2 ML VIAL (J1720 PER 1) IV ONE (17:00)
[2020-05-29] MEDS ORDERED: VEDOLIZUMAB 300 MG in NS 250 ML IV ONE (17:00)
[2020-05-29 17:02] VITALS: BP 116/72
[2020-05-29 17:51] VITALS: BP 122/65
== END 2020-05-29 17:55 | disposition home or self-care (01) ==
LOC: M INFU 16:34
PROVIDERS: ATTEND Internal Medicine Gastroenterology
DX: K50.00 Crohn's disease of small intestine without complications (principal); Z88.8 Allergy status to other drugs, medicaments and biological substances
CPT/HCPCS: 96365; J3380

== ENCOUNTER → 2020-07-02 | Outpatient (CLI) | payer MEDICARE, OTHER ==
[~2020-07-02] MED LIST changes: +COLC0.6T47 PO; -COLC1TAB13 PO
== END ==
LOC: M LABCAHC 12:30
PROVIDERS: ATTEND Pediatrics
DX: Z11.59 Encounter for screening for other viral diseases (principal)

== ENCOUNTER 2020-07-10 16:47 | Outpatient (CLI) | payer MEDICARE, OTHER ==
[~2020-07-10] VITALS: Ht 162.6 cm; Wt 85.2 kg
[2020-07-10 16:50] VITALS: BP 155/70
[2020-07-10] MEDS ORDERED: diphenhydrAMINE 50MG/ML VIAL (J1200) IV ONE (17:00)
[2020-07-10] MEDS ORDERED: VEDOLIZUMAB 300 MG in NS 250 ML IV ONE (17:00)
[2020-07-10] MEDS ORDERED: HYDROCORTISONE 100 MG/2 ML VIAL (J1720 PER 1) IV ONE (17:00)
== END 2020-07-10 18:00 | disposition home or self-care (01) ==
LOC: M INFU 16:47
PROVIDERS: ATTEND Internal Medicine Gastroenterology
DX: K50.00 Crohn's disease of small intestine without complications (principal); Z88.8 Allergy status to other drugs, medicaments and biological substances
CPT/HCPCS: 96365; J3380

== ENCOUNTER 2020-08-21 16:48 | Outpatient (CLI) | payer MEDICARE, OTHER ==
[~2020-08-21] VITALS: Ht 162.6 cm; Wt 87.0 kg
[~2020-08-21 16:48] MED LIST changes: +ALBUTEROL SULFATE 2.5 MG/0.5 ML INH NEB SOLN INH PRN; +EPINEPHrine INJ 1 MG/ML 1ML AMP IM PRN; +NS 1,000 ML IV SCH; +diphenhydrAMINE 50MG/ML VIAL (J1200) IV PRN; +methylPREDNISolone 125MG 2ML VIAL IV PRN
[2020-08-21 16:50] VITALS: BP 136/71
[2020-08-21] MEDS ORDERED: VEDOLIZUMAB 300 MG in NS 250 ML IV ONE (17:00)
[2020-08-21] MEDS ORDERED: HYDROCORTISONE 100 MG/2 ML VIAL (J1720 PER 1) IV ONE (17:00)
[2020-08-21] MEDS ORDERED: diphenhydrAMINE 50MG/ML VIAL (J1200) IV ONE (17:00)
[2020-08-21 17:15] VITALS: BP 136/71
[2020-08-21 17:46] VITALS: BP 133/76
== END 2020-08-21 17:50 | disposition home or self-care (01) ==
LOC: M INFU 16:48
PROVIDERS: ATTEND Internal Medicine Gastroenterology
DX: K50.90 Crohn's disease, unspecified, without complications (principal); Z88.8 Allergy status to other drugs, medicaments and biological substances
CPT/HCPCS: 96365; J3380

== ENCOUNTER 2020-10-02 16:38 | Outpatient (CLI) | payer MEDICARE, OTHER ==
[~2020-10-02] VITALS: Ht 162.6 cm; Wt 87.3 kg
[~2020-10-02 16:38] MED LIST changes: -NS 1,000 ML IV SCH
[2020-10-02 16:40] VITALS: BP 141/67
[2020-10-02] MEDS ORDERED: diphenhydrAMINE 50MG/ML VIAL (J1200) IV ONE (17:00)
[2020-10-02] MEDS ORDERED: NS 1,000 ML IV SCH (17:00)
[2020-10-02] MEDS ORDERED: HYDROCORTISONE 100 MG/2 ML VIAL (J1720 PER 1) IV ONE (17:00)
[2020-10-02] MEDS ORDERED: VEDOLIZUMAB 300 MG in NS 250 ML IV ONE (17:00)
[2020-10-02 18:01] VITALS: BP 127/77
== END 2020-10-02 18:00 | disposition home or self-care (01) ==
LOC: M INFU 16:38
PROVIDERS: ATTEND Internal Medicine Gastroenterology
DX: K50.90 Crohn's disease, unspecified, without complications (principal); Z88.8 Allergy status to other drugs, medicaments and biological substances
CPT/HCPCS: 96365; J3380

== ENCOUNTER 2020-11-13 16:36 | Outpatient (CLI) | payer MEDICARE, OTHER ==
[~2020-11-13] VITALS: Ht 162.6 cm; Wt 87.1 kg
[2020-11-13] MEDS ORDERED: diphenhydrAMINE 50MG/ML VIAL (J1200) IV ONE (17:00)
[2020-11-13] MEDS ORDERED: NS 1,000 ML IV SCH (17:00)
[2020-11-13] MEDS ORDERED: HYDROCORTISONE 100 MG/2 ML VIAL (J1720 PER 1) IV ONE (17:00)
[2020-11-13] MEDS ORDERED: VEDOLIZUMAB 300 MG in NS 250 ML IV ONE (17:00)
[2020-11-13 17:01] VITALS: BP 150/82
[2020-11-13 17:36] VITALS: BP 163/79
== END 2020-11-13 17:35 | disposition home or self-care (01) ==
LOC: M INFU 16:36
PROVIDERS: ATTEND Internal Medicine Gastroenterology
DX: K50.00 Crohn's disease of small intestine without complications (principal)
CPT/HCPCS: 96365; J3380

== ENCOUNTER 2020-12-25 16:49 | Outpatient (CLI) | payer MEDICARE, OTHER ==
[~2020-12-25] VITALS: Ht 162.6 cm; Wt 87.0 kg
[~2020-12-25 16:49] MED LIST changes: -ALBUTEROL SULFATE 2.5 MG/0.5 ML INH NEB SOLN INH PRN; -EPINEPHrine INJ 1 MG/ML 1ML AMP IM PRN; -diphenhydrAMINE 50MG/ML VIAL (J1200) IV PRN; -methylPREDNISolone 125MG 2ML VIAL IV PRN
[2020-12-25 16:55] VITALS: BP 139/68
[2020-12-25] MEDS ORDERED: diphenhydrAMINE 50MG/ML VIAL (J1200) IV PRN (17:00)
[2020-12-25] MEDS ORDERED: VEDOLIZUMAB 300 MG in NS 250 ML IV ONE (17:00)
[2020-12-25] MEDS ORDERED: NS 1,000 ML IV SCH (17:00)
[2020-12-25] MEDS ORDERED: ALBUTEROL SULFATE 2.5 MG/0.5 ML INH NEB SOLN INH PRN (17:00)
[2020-12-25 18:50] VITALS: BP 153/83
== END 2020-12-25 18:50 | disposition home or self-care (01) ==
LOC: M INFU 16:49
PROVIDERS: ATTEND Internal Medicine Gastroenterology
DX: K50.90 Crohn's disease, unspecified, without complications (principal); Z88.8 Allergy status to other drugs, medicaments and biological substances
CPT/HCPCS: 96365; J3380

== ENCOUNTER 2021-02-06 16:55 | Outpatient (CLI) | payer MEDICARE, OTHER ==
[~2021-02-06] VITALS: Ht 162.6 cm; Wt 87.1 kg
[~2021-02-06 16:55] MED LIST changes: +methylPREDNISolone 125MG 2ML VIAL IV PRN
[2021-02-06 17:00] VITALS: BP 170/81
[2021-02-06] MEDS ORDERED: diphenhydrAMINE 50MG/ML VIAL (J1200) IV PRN (17:00)
[2021-02-06] MEDS ORDERED: HYDROCORTISONE 100 MG/2 ML VIAL (J1720 PER 1) IV SCH (17:00)
[2021-02-06] MEDS ORDERED: diphenhydrAMINE 50MG/ML VIAL (J1200) IV SCH (17:00)
[2021-02-06] MEDS ORDERED: ALBUTEROL SULFATE 2.5 MG/0.5 ML INH NEB SOLN INH PRN (17:00)
[2021-02-06] MEDS ORDERED: EPINEPHrine INJ 1 MG/ML 1ML AMP IM PRN (17:00)
[2021-02-06] MEDS ORDERED: VEDOLIZUMAB 300 MG in NS 250 ML IV ONE (17:00)
[2021-02-06 17:30] VITALS: BP 150/76
[2021-02-06] MEDS ORDERED: LOSA100T50 PO (17:36)
[2021-02-06] MEDS ORDERED: LEVO25TA5 PO (17:41)
[2021-02-06] MEDS ORDERED: METO1TAB7 PO (17:42)
[2021-02-06] MEDS ORDERED: FOSA70TA PO (17:42)
[2021-02-06 18:08] VITALS: BP 146/72
== END 2021-02-06 18:15 | disposition home or self-care (01) ==
LOC: M INFU 16:55
PROVIDERS: ATTEND Internal Medicine Gastroenterology
DX: K50.00 Crohn's disease of small intestine without complications (principal); Z88.8 Allergy status to other drugs, medicaments and biological substances
CPT/HCPCS: 96365; J3380

== ENCOUNTER 2021-03-24 16:39 | Outpatient (CLI) | payer MEDICARE, OTHER ==
[~2021-03-24] VITALS: Ht 162.6 cm; Wt 87.1 kg
[~2021-03-24 16:39] MED LIST changes: +FOSA70TA PO; +LEVO25TA5 PO; +LOSA100T50 PO; +METO1TAB7 PO; -methylPREDNISolone 125MG 2ML VIAL IV PRN
[2021-03-24 16:40] VITALS: BP 136/77
[2021-03-24 16:45] VITALS: BP 136/77
[2021-03-24] MEDS ORDERED: diphenhydrAMINE 50MG IV PRIOR TO INFUSION IV ONE (17:00)
[2021-03-24] MEDS ORDERED: NS 1,000 ML IV SCH (17:00)
[2021-03-24] MEDS ORDERED: HYDROCORTISONE 100 MG/2 ML VIAL (J1720 PER 1) IV ONE (17:00)
[2021-03-24] MEDS ORDERED: VEDOLIZUMAB 300 MG in NS 250 ML IV ONE (17:00)
[2021-03-24 18:10] VITALS: BP 134/73
== END 2021-03-24 18:10 | disposition home or self-care (01) ==
LOC: M INFU 16:39
PROVIDERS: ATTEND Internal Medicine Gastroenterology
DX: K50.00 Crohn's disease of small intestine without complications (principal)
CPT/HCPCS: 96365; J3380

== ENCOUNTER 2021-05-05 16:35 | Outpatient (CLI) | payer MEDICARE, OTHER ==
[~2021-05-05] VITALS: Ht 162.6 cm; Wt 87.1 kg
[2021-05-05 16:40] VITALS: BP 130/66
[2021-05-05] MEDS ORDERED: diphenhydrAMINE 50MG/ML VIAL (J1200) IV ONE (17:00)
[2021-05-05] MEDS ORDERED: VEDOLIZUMAB 300 MG in NS 250 ML IV ONE (17:00)
[2021-05-05] MEDS ORDERED: HYDROCORTISONE 100 MG/2 ML VIAL (J1720 PER 1) IV ONE (17:00)
[2021-05-05 17:51] VITALS: BP 150/72
== END 2021-05-05 18:00 | disposition home or self-care (01) ==
LOC: M INFU 16:35
PROVIDERS: ATTEND Internal Medicine Gastroenterology
DX: K50.00 Crohn's disease of small intestine without complications (principal); Z88.8 Allergy status to other drugs, medicaments and biological substances
CPT/HCPCS: 96365; J3380

== ENCOUNTER 2021-06-16 16:46 | Outpatient (CLI) | payer MEDICARE, OTHER ==
[~2021-06-16] VITALS: Ht 165.1 cm; Wt 81.8 kg
[~2021-06-16 16:46] MED LIST changes: +ALBUTEROL SULFATE 2.5 MG/0.5 ML INH NEB SOLN INH PRN; +EPINEPHrine INJ 1 MG/ML 1ML AMP IM PRN; +diphenhydrAMINE 50MG/ML VIAL (J1200) IV PRN; +methylPREDNISolone 125MG 2ML VIAL IV PRN
[2021-06-16 16:50] VITALS: BP 143/65
[2021-06-16] MEDS ORDERED: NS 1,000 ML IV SCH (17:00)
[2021-06-16] MEDS ORDERED: VEDOLIZUMAB 300 MG in NS 250 ML IV ONE (17:00)
[2021-06-16] MEDS ORDERED: diphenhydrAMINE 50MG/ML VIAL (J1200) IV ONE (17:00)
[2021-06-16] MEDS ORDERED: HYDROCORTISONE 100 MG/2 ML VIAL (J1720 PER 1) IV ONE (17:00)
[2021-06-16 17:22] VITALS: BP 143/65
[2021-06-16 18:28] VITALS: BP 131/65
== END 2021-06-16 18:25 | disposition home or self-care (01) ==
LOC: M INFU 16:46
PROVIDERS: ATTEND Internal Medicine Gastroenterology
DX: K50.00 Crohn's disease of small intestine without complications (principal); Z88.8 Allergy status to other drugs, medicaments and biological substances
CPT/HCPCS: 96365; J3380

== ENCOUNTER 2021-07-28 17:07 | Outpatient (CLI) | payer MEDICARE, OTHER ==
[~2021-07-28] VITALS: Ht 165.1 cm; Wt 81.8 kg
[~2021-07-28 17:07] MED LIST changes: -ALBUTEROL SULFATE 2.5 MG/0.5 ML INH NEB SOLN INH PRN; -EPINEPHrine INJ 1 MG/ML 1ML AMP IM PRN; +VEDOLIZUMAB 300 MG in NS 250 ML IV ONE; +diphenhydrAMINE 50MG CAP PO ONE; -diphenhydrAMINE 50MG/ML VIAL (J1200) IV PRN; -methylPREDNISolone 125MG 2ML VIAL IV PRN
[2021-07-28 17:21] VITALS: BP 151/79
[2021-07-28 18:23] VITALS: BP 146/76
== END 2021-07-28 18:23 | disposition home or self-care (01) ==
LOC: M INFU 17:07
PROVIDERS: ATTEND Internal Medicine Gastroenterology
DX: K50.90 Crohn's disease, unspecified, without complications (principal); Z88.8 Allergy status to other drugs, medicaments and biological substances
CPT/HCPCS: 96365; J3380

== ENCOUNTER 2021-09-08 16:42 | Outpatient (CLI) | payer MEDICARE, OTHER ==
[~2021-09-08] VITALS: Ht 165.1 cm; Wt 81.8 kg
[~2021-09-08 16:42] MED LIST changes: +LOSA100T45 PO; -LOSA100T50 PO; -VEDOLIZUMAB 300 MG in NS 250 ML IV ONE; -diphenhydrAMINE 50MG CAP PO ONE
[2021-09-08] MEDS ORDERED: HYDROCORTISONE 100 MG/2 ML VIAL (J1720 PER 1) IV ONE (17:00)
[2021-09-08] MEDS ORDERED: diphenhydrAMINE 50MG/ML VIAL (J1200) IV ONE (17:00)
[2021-09-08] MEDS ORDERED: VEDOLIZUMAB 300 MG in NS 250 ML IV ONE (17:00)
[2021-09-08 17:07] VITALS: BP 146/70
[2021-09-08 17:55] VITALS: BP 132/67
== END 2021-09-08 17:55 | disposition home or self-care (01) ==
LOC: M INFU 16:42
PROVIDERS: ATTEND Internal Medicine Gastroenterology
DX: K50.00 Crohn's disease of small intestine without complications (principal); Z88.8 Allergy status to other drugs, medicaments and biological substances
CPT/HCPCS: 96365; J3380

== ENCOUNTER → 2021-09-17 | Outpatient (CLI) | payer MEDICARE, OTHER | LOC: M WHC 14:53 | PROVIDERS: ATTEND Internal Medicine Gastroenterology | DX: M81.0 Age-related osteoporosis without current pathological fracture (principal) ==

== ENCOUNTER 2021-10-20 16:53 | Outpatient (CLI) | payer MEDICARE, OTHER ==
[~2021-10-20] VITALS: Ht 165.1 cm; Wt 81.8 kg
[2021-10-20] MEDS ORDERED: diphenhydrAMINE 50MG/ML VIAL (J1200) IV ONE (17:00)
[2021-10-20] MEDS ORDERED: HYDROCORTISONE 100 MG/2 ML VIAL (J1720 PER 1) IV ONE (17:00)
[2021-10-20 17:01] VITALS: BP 145/65
[2021-10-20] MEDS ORDERED: VEDOLIZUMAB 300 MG in NS 250 ML IV ONE (17:30)
[2021-10-20 18:03] VITALS: BP 121/58
== END 2021-10-20 18:10 | disposition home or self-care (01) ==
LOC: M INFU 16:53
PROVIDERS: ATTEND Internal Medicine Gastroenterology
DX: K50.00 Crohn's disease of small intestine without complications (principal); Z88.8 Allergy status to other drugs, medicaments and biological substances
CPT/HCPCS: 96365; J3380

== ENCOUNTER 2021-12-01 16:54 | Outpatient (CLI) | payer MEDICARE, OTHER ==
[~2021-12-01] VITALS: Ht 165.1 cm; Wt 81.8 kg
[2021-12-01] MEDS ORDERED: diphenhydrAMINE 50MG/ML VIAL (J1200) IV ONE (17:00)
[2021-12-01] MEDS ORDERED: VEDOLIZUMAB 300 MG in NS 250 ML IV ONE (17:00)
[2021-12-01] MEDS ORDERED: HYDROCORTISONE 100 MG/2 ML VIAL (J1720 PER 1) IV ONE (17:00)
[2021-12-01 17:20] VITALS: BP 139/68
[2021-12-01 18:50] VITALS: BP 134/71
== END 2021-12-01 18:50 | disposition home or self-care (01) ==
LOC: M INFU 16:54
PROVIDERS: ATTEND Internal Medicine Gastroenterology
DX: K50.00 Crohn's disease of small intestine without complications (principal); Z88.8 Allergy status to other drugs, medicaments and biological substances
CPT/HCPCS: 96365; J3380

== ENCOUNTER 2022-01-12 16:50 | Outpatient (CLI) | payer MEDICARE, OTHER ==
[~2022-01-12] VITALS: Ht 167.6 cm; Wt 81.8 kg
[2022-01-12 16:50] VITALS: BP 152/71
[2022-01-12] MEDS ORDERED: diphenhydrAMINE 50MG/ML VIAL (J1200) IV ONE (17:00)
[2022-01-12] MEDS ORDERED: HYDROCORTISONE 100 MG/2 ML VIAL (J1720 PER 1) IV ONE (17:00)
[2022-01-12] MEDS ORDERED: VEDOLIZUMAB 300 MG in NS 250 ML IV ONE (17:00)
[2022-01-12 17:55] VITALS: BP 157/77
== END 2022-01-12 18:00 | disposition home or self-care (01) ==
LOC: M INFU 16:50
PROVIDERS: ATTEND Internal Medicine Gastroenterology
DX: K50.00 Crohn's disease of small intestine without complications (principal); Z88.8 Allergy status to other drugs, medicaments and biological substances
CPT/HCPCS: 96365; J3380

== ENCOUNTER 2022-02-23 16:50 | Outpatient (CLI) | payer MEDICARE, OTHER ==
[~2022-02-23] VITALS: Ht 162.6 cm; Wt 84.1 kg
[2022-02-23 16:50] VITALS: BP 153/72
[2022-02-23] MEDS ORDERED: HYDROCORTISONE 100 MG/2 ML VIAL (J1720 PER 1) IV ONE (17:00)
[2022-02-23] MEDS ORDERED: VEDOLIZUMAB 300 MG in NS 250 ML IV ONE (17:00)
[2022-02-23] MEDS ORDERED: diphenhydrAMINE 50MG/ML VIAL (J1200) IV ONE (17:00)
[2022-02-23 17:50] VITALS: BP 148/80
== END 2022-02-23 17:50 | disposition home or self-care (01) ==
LOC: M INFU 16:50
PROVIDERS: ATTEND Internal Medicine Gastroenterology
DX: K50.00 Crohn's disease of small intestine without complications (principal); Z88.8 Allergy status to other drugs, medicaments and biological substances
CPT/HCPCS: 96365; J3380

== ENCOUNTER 2022-04-06 17:00 | Outpatient (CLI) | payer MEDICARE, OTHER ==
[~2022-04-06 17:00] MED LIST changes: +ALEN70TA87 PO; -FOSA70TA PO; +HYDROCORTISONE 100 MG/2 ML VIAL (J1720 PER 1) IV ONE; +VEDOLIZUMAB 300 MG in NS 250 ML IV ONE; +diphenhydrAMINE 50MG/ML VIAL (J1200) IV ONE
[2022-04-06 17:15] VITALS: BP 143/66
[2022-04-06 18:29] VITALS: BP 161/74
== END 2022-04-06 18:30 | disposition home or self-care (01) ==
LOC: M INFU 17:00
PROVIDERS: ATTEND Internal Medicine Gastroenterology
DX: K50.90 Crohn's disease, unspecified, without complications (principal); Z88.9 Allergy status to unspecified drugs, medicaments and biological substances; Z88.8 Allergy status to other drugs, medicaments and biological substances
CPT/HCPCS: 96365; J3380

== ENCOUNTER 2022-05-18 16:50 | Outpatient (CLI) | payer MEDICARE, OTHER ==
[~2022-05-18] VITALS: Ht 162.6 cm; Wt 84.0 kg
[2022-05-18 16:50] VITALS: BP 159/72
[~2022-05-18 16:50] MED LIST changes: -HYDROCORTISONE 100 MG/2 ML VIAL (J1720 PER 1) IV ONE; -VEDOLIZUMAB 300 MG in NS 250 ML IV ONE; -diphenhydrAMINE 50MG/ML VIAL (J1200) IV ONE
[2022-05-18] MEDS ORDERED: HYDROCORTISONE 100 MG/2 ML VIAL (J1720 PER 1) IV ONE (17:00)
[2022-05-18] MEDS ORDERED: VEDOLIZUMAB 300 MG in NS 250 ML IV ONE (17:00)
[2022-05-18] MEDS ORDERED: diphenhydrAMINE 50MG/ML VIAL (J1200) IV ONE (17:00)
[2022-05-18 18:04] VITALS: BP 145/67
== END 2022-05-18 18:05 | disposition home or self-care (01) ==
LOC: M INFU 16:50
PROVIDERS: ATTEND Internal Medicine Gastroenterology
DX: K50.90 Crohn's disease, unspecified, without complications (principal); Z88.8 Allergy status to other drugs, medicaments and biological substances
CPT/HCPCS: 96365; J3380

== ENCOUNTER 2022-06-29 16:55 | Outpatient (CLI) | payer MEDICARE, OTHER ==
[~2022-06-29] VITALS: Ht 165.1 cm; Wt 81.0 kg
[2022-06-29] MEDS ORDERED: VEDOLIZUMAB 300 MG in NS 250 ML IV ONE (17:00)
[2022-06-29 17:05] VITALS: BP 140/74
[2022-06-29 18:03] VITALS: BP 134/84
== END 2022-06-29 18:05 | disposition home or self-care (01) ==
LOC: M INFU 16:55
PROVIDERS: ATTEND Internal Medicine Gastroenterology
DX: K50.90 Crohn's disease, unspecified, without complications (principal); Z88.8 Allergy status to other drugs, medicaments and biological substances
CPT/HCPCS: 96365; J3380

== ENCOUNTER 2022-08-10 16:45 | Outpatient (CLI) | payer MEDICARE, OTHER ==
[~2022-08-10] VITALS: Ht 162.6 cm; Wt 88.6 kg
[2022-08-10 16:45] VITALS: BP 151/81
[~2022-08-10 16:45] MED LIST changes: +ALBUTEROL SULFATE 2.5MG/0.5ML INH NEB SOLN INH PRN; +EPINEPHrine INJ 1 MG/ML 1ML AMP IM PRN; +NS 1,000 ML IV ONE; +diphenhydrAMINE 50MG/ML VIAL IV ONE; +diphenhydrAMINE 50MG/ML VIAL IV PRN; +methylPREDNISolone 125MG 2ML VIAL IV PRN
[2022-08-10] MEDS ORDERED: VEDOLIZUMAB 300 MG in NS 250 ML IV ONE (17:00)
[2022-08-10 18:00] VITALS: BP 134/66
== END 2022-08-10 18:00 | disposition home or self-care (01) ==
LOC: M INFU 16:45
PROVIDERS: ATTEND Internal Medicine Gastroenterology
DX: K50.90 Crohn's disease, unspecified, without complications (principal); Z88.8 Allergy status to other drugs, medicaments and biological substances
CPT/HCPCS: 96365; J3380

== ENCOUNTER 2022-10-07 16:45 | Outpatient (CLI) | payer MEDICARE, OTHER ==
[~2022-10-07] VITALS: Ht 162.6 cm; Wt 88.6 kg
[2022-10-07 16:45] VITALS: BP 160/74
[~2022-10-07 16:45] MED LIST changes: -ALBUTEROL SULFATE 2.5MG/0.5ML INH NEB SOLN INH PRN; -EPINEPHrine INJ 1 MG/ML 1ML AMP IM PRN; -NS 1,000 ML IV ONE; -diphenhydrAMINE 50MG/ML VIAL IV ONE; -diphenhydrAMINE 50MG/ML VIAL IV PRN; -methylPREDNISolone 125MG 2ML VIAL IV PRN
[2022-10-07] MEDS ORDERED: NS 1,000 ML IV ONE (17:00)
[2022-10-07] MEDS ORDERED: methylPREDNISolone 125MG 2ML VIAL IV PRN (17:00)
[2022-10-07] MEDS ORDERED: VEDOLIZUMAB 300 MG in NS 250 ML IV ONE (17:00)
[2022-10-07] MEDS ORDERED: HYDROCORTISONE 100MG/2ML VIAL IV ONE (17:00)
[2022-10-07] MEDS ORDERED: ALBUTEROL SULFATE 2.5MG/0.5ML INH NEB SOLN INH PRN (17:00)
[2022-10-07] MEDS ORDERED: EPINEPHrine INJ 1 MG/ML 1ML AMP IM PRN (17:00)
[2022-10-07] MEDS ORDERED: diphenhydrAMINE 50MG/ML VIAL IV ONE (17:00)
[2022-10-07] MEDS ORDERED: diphenhydrAMINE 50MG/ML VIAL IV PRN (17:00)
[2022-10-07 17:45] VITALS: BP 143/67
== END 2022-10-07 17:45 | disposition home or self-care (01) ==
LOC: M INFU 16:45
PROVIDERS: ATTEND Internal Medicine Gastroenterology
DX: K50.90 Crohn's disease, unspecified, without complications (principal); Z88.9 Allergy status to unspecified drugs, medicaments and biological substances
CPT/HCPCS: 96365; J3380

== ENCOUNTER → 2022-10-12 | Outpatient (CLI) | payer MEDICARE, OTHER | LOC: M WHC 13:34 | PROVIDERS: ATTEND Family Medicine | DX: M85.89 Other specified disorders of bone density and structure, multiple sites (principal) ==

== ENCOUNTER 2022-11-18 16:49 | Outpatient (CLI) | payer MEDICARE, OTHER ==
[~2022-11-18] VITALS: Ht 162.6 cm; Wt 84.1 kg
[~2022-11-18 16:49] MED LIST changes: +ALBUTEROL SULFATE 2.5MG/0.5ML INH NEB SOLN INH PRN; +EPINEPHrine INJ 1 MG/ML 1ML AMP IM PRN; +diphenhydrAMINE 50MG/ML VIAL IV PRN; +methylPREDNISolone 125MG 2ML VIAL IV PRN
[2022-11-18] MEDS ORDERED: NS 1,000 ML IV SCH (17:00)
[2022-11-18] MEDS ORDERED: HYDROCORTISONE 100MG/2ML VIAL IV ONE (17:00)
[2022-11-18] MEDS ORDERED: VEDOLIZUMAB 300 MG in NS 250 ML IV ONE (17:00)
[2022-11-18] MEDS ORDERED: diphenhydrAMINE 50MG/ML VIAL IV ONE (17:00)
[2022-11-18 17:26] VITALS: BP 144/84
[2022-11-18 18:00] VITALS: BP 129/60
== END 2022-11-18 18:00 | disposition home or self-care (01) ==
LOC: M INFU 16:49
PROVIDERS: ATTEND Internal Medicine Gastroenterology
DX: K50.90 Crohn's disease, unspecified, without complications (principal); Z88.8 Allergy status to other drugs, medicaments and biological substances
CPT/HCPCS: 96365; J3380

== ENCOUNTER 2023-03-24 17:00 | Outpatient (CLI) | payer MEDICARE, OTHER ==
[~2023-03-24] VITALS: Ht 162.6 cm; Wt 88.6 kg
[2023-03-24 16:58] VITALS: BP 139/80; O2SAT 96
[~2023-03-24 17:00] MED LIST changes: +DICY-61 PO; -DICY10CA13 PO; +FINA-48 PO; -K-TA10TA2 PO; -LOSA100T45 PO; +LOSA100T46 PO; +NS 1,000 ML IV SCH; +POTA-165 PO; -PROS5TAB PO; +VEDOLIZUMAB 300 MG in NS 250 ML IV ONE; +diphenhydrAMINE 50MG/ML VIAL IV ONE
[2023-03-24 18:00] VITALS: BP 135/73; O2SAT 97
== END 2023-03-24 18:00 ==
LOC: M INFU 17:00
PROVIDERS: ATTEND Internal Medicine Gastroenterology
DX: K50.00 Crohn's disease of small intestine without complications (principal); Z88.8 Allergy status to other drugs, medicaments and biological substances
CPT/HCPCS: 96365; J3380

== ENCOUNTER 2023-05-05 16:55 | Outpatient (CLI) | payer MEDICARE, OTHER ==
[~2023-05-05] VITALS: Ht 162.6 cm; Wt 88.6 kg
[2023-05-05 16:55] VITALS: BP 165/77; O2SAT 98
[~2023-05-05 16:55] MED LIST changes: -NS 1,000 ML IV SCH; -VEDOLIZUMAB 300 MG in NS 250 ML IV ONE; -diphenhydrAMINE 50MG/ML VIAL IV ONE
[2023-05-05] MEDS ORDERED: NS 1,000 ML IV SCH (17:00)
[2023-05-05] MEDS ORDERED: diphenhydrAMINE 50MG CAP PO ONE (17:00)
[2023-05-05] MEDS ORDERED: VEDOLIZUMAB 300 MG in NS 250 ML IV ONE (17:00)
[2023-05-05 18:16] VITALS: BP 132/70; O2SAT 98
== END 2023-05-05 18:20 | disposition home or self-care (01) ==
LOC: M INFU 16:55
PROVIDERS: ATTEND Internal Medicine Gastroenterology
DX: K50.90 Crohn's disease, unspecified, without complications (principal); Z88.8 Allergy status to other drugs, medicaments and biological substances
CPT/HCPCS: 96365; J3380

== ENCOUNTER 2023-06-16 16:30 | Outpatient (CLI) | payer MEDICARE, OTHER ==
[~2023-06-16] VITALS: Ht 162.6 cm; Wt 86.4 kg
[2023-06-16] MEDS ORDERED: VEDOLIZUMAB 300 MG in NS 250 ML IV ONE (16:50)
[2023-06-16] MEDS ORDERED: NS 1,000 ML IV SCH (16:50)
[2023-06-16] MEDS ORDERED: diphenhydrAMINE 25MG CAP PO ONE (16:50)
[2023-06-16] MEDS ORDERED: HYDROCORTISONE 100MG/2ML VIAL IV ONE (16:55)
[2023-06-16 17:00] VITALS: BP 138/58; O2SAT 97
[2023-06-16 18:00] VITALS: BP 159/72; O2SAT 96
== END 2023-06-16 18:00 ==
LOC: M INFU 16:30
PROVIDERS: ATTEND Internal Medicine Gastroenterology
DX: K50.00 Crohn's disease of small intestine without complications (principal)
CPT/HCPCS: 96365; J3380

== ENCOUNTER 2023-07-28 17:04 | Outpatient (CLI) | payer MEDICARE, OTHER ==
[~2023-07-28] VITALS: Ht 162.6 cm; Wt 88.1 kg
[~2023-07-28 17:04] MED LIST changes: +NS 1,000 ML IV SCH; +diphenhydrAMINE 50MG IV PRIOR TO INFUSION IV ONE
[2023-07-28 17:25] VITALS: BP 128/61; O2SAT 96
[2023-07-28] MEDS ORDERED: VEDOLIZUMAB 300 MG in NS 250 ML IV ONE (18:00)
[2023-07-28 18:22] VITALS: BP 137/69; O2SAT 98
== END 2023-07-28 18:23 | disposition home or self-care (01) ==
LOC: M INFU 17:04
PROVIDERS: ATTEND Internal Medicine Gastroenterology
DX: K50.90 Crohn's disease, unspecified, without complications (principal); Z88.8 Allergy status to other drugs, medicaments and biological substances
CPT/HCPCS: 96365; J3380

== ENCOUNTER 2023-09-08 16:45 | Outpatient (CLI) | payer MEDICARE, OTHER ==
[~2023-09-08] VITALS: Ht 162.6 cm; Wt 88.0 kg
[~2023-09-08 16:45] MED LIST changes: -diphenhydrAMINE 50MG IV PRIOR TO INFUSION IV ONE
[2023-09-08 16:56] VITALS: BP 134/63; O2SAT 96
[2023-09-08] MEDS ORDERED: HYDROCORTISONE 100MG/2ML VIAL IV ONE (17:00)
[2023-09-08] MEDS ORDERED: diphenhydrAMINE 50MG/ML VIAL IV ONE (17:00)
[2023-09-08] MEDS: VEDOLIZUMAB 300 MG in NS 250 ML IV ONE (17:02)
[2023-09-08 17:39] VITALS: BP 144/69; O2SAT 96
== END 2023-09-08 17:40 ==
LOC: M INFU 16:45
PROVIDERS: ATTEND Internal Medicine Gastroenterology
DX: K50.90 Crohn's disease, unspecified, without complications (principal); Z88.8 Allergy status to other drugs, medicaments and biological substances
CPT/HCPCS: 96365; J3380

== ENCOUNTER 2023-10-20 17:00 | Outpatient (CLI) | payer MEDICARE, OTHER ==
[~2023-10-20] VITALS: Ht 162.6 cm; Wt 81.8 kg
[2023-10-20 17:00] VITALS: BP 127/58; O2SAT 96
[~2023-10-20 17:00] MED LIST changes: +HYDROCORTISONE 100MG/2ML VIAL IV ONE; +diphenhydrAMINE 50MG/ML VIAL IV ONE
[2023-10-20] MEDS: VEDOLIZUMAB 300 MG in NS 250 ML IV ONE (17:16)
[2023-10-20 18:00] VITALS: BP 128/68; O2SAT 96
== END 2023-10-20 18:00 ==
LOC: M INFU 17:00
PROVIDERS: ATTEND Internal Medicine Gastroenterology
DX: K50.90 Crohn's disease, unspecified, without complications (principal); Z88.8 Allergy status to other drugs, medicaments and biological substances
CPT/HCPCS: 96365; J3380

== ENCOUNTER → 2023-11-16 | Outpatient (REF) | payer MEDICARE, OTHER ==
[~2023-11-16] MED LIST changes: -ALBUTEROL SULFATE 2.5MG/0.5ML INH NEB SOLN INH PRN; -EPINEPHrine INJ 1 MG/ML 1ML AMP IM PRN; -HYDROCORTISONE 100MG/2ML VIAL IV ONE; -NS 1,000 ML IV SCH; -diphenhydrAMINE 50MG/ML VIAL IV ONE; -diphenhydrAMINE 50MG/ML VIAL IV PRN; -methylPREDNISolone 125MG 2ML VIAL IV PRN
[2023-11-16 13:58] LABS: BASO # 0.1 10^3/uL (0.0-0.2); BASO % 0.7 % (0.0-1.0); EOS # 0.6 10^3/uL (0.0-0.5); EOS % 5.9 % (0.0-3.0); HEMATOCRIT 37.9 % (42.0-52.0); HEMOGLOBIN 12.5 g/dl (13.5-17.5); LYMPH # 1.5 10^3/uL (1.5-5.0); LYMPH % 15.2 % (24.0-44.0); MEAN CORPUSCULAR HEMOGLOBIN 30.7 pg (27.0-33.0); MEAN CORPUSCULAR VOLUME 93.1 fl (80.0-96.0); MONO # 0.9 10^3/uL (0.0-0.8); MONO % 9.1 % (2.0-8.0); NEUTROPHILS # 6.9 10^3/uL (1.5-8.5); NEUTROPHILS % 68.7 % (36.0-66.0); PLATELET COUNT, AUTOMATED 273 10^3/uL (150-450); RED BLOOD COUNT 4.07 10^6/uL (4.30-6.10)
[2023-11-16 14:06] LABS: ERYTHROCYTE SEDIMENTATION RATE 33 mm/hr (0-20)
[2023-11-16 14:11] LABS: IMMUNOGLOBULIN A 297.4 MG/DL (40-350)
[2023-11-16 14:16] LABS: URIC ACID 9.5 MG/DL (3.7-9.2)
[2023-11-16 14:17] LABS: IMMUNOGLOBULIN G 929 MG/DL (650-1600)
[2023-11-16 14:18] LABS: ALBUMIN 3.8 G/DL (3.2-5.2); ALKALINE PHOSPHATASE 101 U/L (46-116); ALT/SGPT 17 U/L (7.0-40); AST/SGOT 26 U/L (<34); BILIRUBIN,TOTAL 0.6 MG/DL (0.3-1.2); BLOOD UREA NITROGEN 27 MG/DL (9-23); CALCIUM LEVEL 9.5 MG/DL (8.3-10.6); CARBON DIOXIDE LEVEL 28 MMOL/L (20-31); CHLORIDE LEVEL 103 MMOL/L (98-107); CREATININE FOR GFR 1.51 MG/DL (0.70-1.30); GLUCOSE, FASTING 84 MG/DL (74-106); POTASSIUM SERUM 4.6 MMOL/L (3.5-5.1); SODIUM LEVEL 140 MMOL/L (136-145); TOTAL PROTEIN 6.6 G/DL (5.7-8.2)
== END ==
LOC: M SFHCRHEU 09:21
PROVIDERS: ATTEND Internal Medicine Rheumatology
DX: R52 Pain, unspecified (principal); K50.818 Crohn's disease of both small and large intestine with other complication; M1A.39X0 Chronic gout due to renal impairment, multiple sites, without tophus (tophi); R21 Rash and other nonspecific skin eruption

== ENCOUNTER 2023-12-01 16:50 | Outpatient (CLI) | payer MEDICARE, OTHER ==
[~2023-12-01] VITALS: Ht 162.6 cm; Wt 84.0 kg
[2023-12-01] MEDS: NS 1,000 ML IV SCH (16:43)
[2023-12-01] MEDS: HYDROCORTISONE 100MG/2ML VIAL IV ONE (16:44)
[2023-12-01] MEDS: diphenhydrAMINE 50MG/ML VIAL IV ONE (16:44)
[2023-12-01 16:50] VITALS: BP 140/67; O2SAT 98
[~2023-12-01 16:50] MED LIST changes: +ALBUTEROL SULFATE 2.5MG/0.5ML INH NEB SOLN INH PRN; +EPINEPHrine INJ 1 MG/ML 1ML AMP IM PRN; +diphenhydrAMINE 50MG/ML VIAL IV PRN; +methylPREDNISolone 125MG 2ML VIAL IV PRN
[2023-12-01] MEDS: VEDOLIZUMAB 300 MG in NS 250 ML IV ONE (17:11)
[2023-12-01 17:43] VITALS: BP 120/61; O2SAT 98
== END 2023-12-01 17:50 ==
LOC: M INFU 16:50
PROVIDERS: ATTEND Internal Medicine Gastroenterology
DX: K50.90 Crohn's disease, unspecified, without complications (principal); Z88.8 Allergy status to other drugs, medicaments and biological substances
CPT/HCPCS: 96365; J3380

== ENCOUNTER → 2024-01-06 | Outpatient (REF) | payer MEDICARE, OTHER ==
[~2024-01-06] MED LIST changes: -ALBUTEROL SULFATE 2.5MG/0.5ML INH NEB SOLN INH PRN; -EPINEPHrine INJ 1 MG/ML 1ML AMP IM PRN; -diphenhydrAMINE 50MG/ML VIAL IV PRN; -methylPREDNISolone 125MG 2ML VIAL IV PRN
[2024-01-06 12:31] LABS: BASO # 0.1 10^3/uL (0.0-0.2); BASO % 0.5 % (0.0-1.0); EOS # 0.3 10^3/uL (0.0-0.5); EOS % 2.6 % (0.0-3.0); HEMATOCRIT 35.3 % (42.0-52.0); HEMOGLOBIN 11.4 g/dl (13.5-17.5); LYMPH # 1.4 10^3/uL (1.5-5.0); LYMPH % 12.5 % (24.0-44.0); MEAN CORPUSCULAR HEMOGLOBIN 29.2 pg (27.0-33.0); MEAN CORPUSCULAR HGB CONC 32.3 g/dl (32.0-36.5); MEAN CORPUSCULAR VOLUME 90.5 fl (80.0-96.0); MONO # 0.8 10^3/uL (0.0-0.8); MONO % 7.3 % (2.0-8.0); NEUTROPHILS # 8.5 10^3/uL (1.5-8.5); NEUTROPHILS % 76.7 % (36.0-66.0); PLATELET COUNT, AUTOMATED 302 10^3/uL (150-450); WHITE BLOOD COUNT 11.1 10^3/uL (4.0-10.0)
[2024-01-06 12:57] LABS: URIC ACID 7.7 MG/DL (3.7-9.2)
[2024-01-06 12:59] LABS: LDH LACTATE DEHYDROGENASE 144 U/L (120-246)
[2024-01-06 13:00] LABS: ALBUMIN 3.8 G/DL (3.2-5.2); ALKALINE PHOSPHATASE 168 U/L (46-116); ALT/SGPT 14 U/L (7.0-40); AST/SGOT 17 U/L (<34); BILIRUBIN,TOTAL 0.4 MG/DL (0.3-1.2); BLOOD UREA NITROGEN 26 MG/DL (9-23); CALCIUM LEVEL 9.7 MG/DL (8.3-10.6); CARBON DIOXIDE LEVEL 28 MMOL/L (20-31); CHLORIDE LEVEL 104 MMOL/L (98-107); CPK CREATINE PHOSPHOKINASE 76 U/L (46-171); GLOMERULAR FILTRATION RATE > 60.0 (>49); GLUCOSE, FASTING 98 MG/DL (74-106); POTASSIUM SERUM 4.9 MMOL/L (3.5-5.1); SODIUM LEVEL 140 MMOL/L (136-145); TOTAL PROTEIN 7.1 G/DL (5.7-8.2)
[2024-01-06 13:08] LABS: ERYTHROCYTE SEDIMENTATION RATE 50 mm/hr (0-20)
== END ==
LOC: M SFHCRHEU 09:34
PROVIDERS: ATTEND Internal Medicine Rheumatology
DX: R52 Pain, unspecified (principal); K50.818 Crohn's disease of both small and large intestine with other complication; M1A.39X0 Chronic gout due to renal impairment, multiple sites, without tophus (tophi); R21 Rash and other nonspecific skin eruption

== ENCOUNTER → 2024-01-07 | Outpatient (REF) | payer MEDICARE, OTHER | LOC: M SFHCRHEU 10:34 | PROVIDERS: ATTEND Internal Medicine Rheumatology | DX: R52 Pain, unspecified (principal); K50.818 Crohn's disease of both small and large intestine with other complication; M1A.39X0 Chronic gout due to renal impairment, multiple sites, without tophus (tophi); R21 Rash and other nonspecific skin eruption; Z53.9 Procedure and treatment not carried out, unspecified reason ==

== ENCOUNTER 2024-01-12 16:48 | Outpatient (CLI) | payer MEDICARE, OTHER ==
[~2024-01-12 16:48] MED LIST changes: +ALBUTEROL SULFATE 2.5MG/0.5ML INH NEB SOLN INH PRN; +EPINEPHrine INJ 1 MG/ML 1ML AMP IM PRN; +NS 1,000 ML IV SCH; +diphenhydrAMINE 50MG/ML VIAL IV PRN; +methylPREDNISolone 125MG 2ML VIAL IV PRN
[2024-01-12 17:00] VITALS: BP 129/62; O2SAT 98
[2024-01-12] MEDS ORDERED: diphenhydrAMINE 50MG/ML VIAL IV ONE (17:00)
[2024-01-12] MEDS: VEDOLIZUMAB 300 MG in NS 250 ML IV ONE (17:03)
[2024-01-12 17:40] VITALS: BP 136/63; O2SAT 98
== END 2024-01-12 17:40 ==
LOC: M INFU 16:48
PROVIDERS: ATTEND Internal Medicine Gastroenterology
DX: K50.00 Crohn's disease of small intestine without complications (principal); Z88.8 Allergy status to other drugs, medicaments and biological substances
CPT/HCPCS: 96413; J3380

== ENCOUNTER 2024-02-23 16:55 | Outpatient (CLI) | payer MEDICARE, OTHER ==
[~2024-02-23] VITALS: Ht 162.6 cm; Wt 77.0 kg
[2024-02-23 17:00] VITALS: BP 123/58; O2SAT 98
[2024-02-23] MEDS ORDERED: diphenhydrAMINE 50MG/ML VIAL IV ONE (17:00)
[2024-02-23] MEDS ORDERED: HYDROCORTISONE 100MG/2ML VIAL IV ONE (17:00)
[2024-02-23] MEDS: VEDOLIZUMAB 300 MG in NS 250 ML IV ONE (17:07)
[2024-02-23 17:47] VITALS: BP 131/62; O2SAT 97
== END 2024-02-23 17:50 | disposition home or self-care (01) ==
LOC: M INFU 16:55
PROVIDERS: ATTEND Internal Medicine Gastroenterology
DX: K50.00 Crohn's disease of small intestine without complications (principal); Z88.8 Allergy status to other drugs, medicaments and biological substances
CPT/HCPCS: 96413; J3380

== ENCOUNTER → 2024-03-03 | Outpatient (REF) | payer MEDICARE, OTHER ==
[~2024-03-03] MED LIST changes: -ALBUTEROL SULFATE 2.5MG/0.5ML INH NEB SOLN INH PRN; -EPINEPHrine INJ 1 MG/ML 1ML AMP IM PRN; -NS 1,000 ML IV SCH; -diphenhydrAMINE 50MG/ML VIAL IV PRN; -methylPREDNISolone 125MG 2ML VIAL IV PRN
== END ==
LOC: M SFHCRHEU 10:34
PROVIDERS: ATTEND Internal Medicine Rheumatology
DX: R52 Pain, unspecified (principal)

== ENCOUNTER → 2024-03-09 | Outpatient (CLI) | payer MEDICARE, OTHER ==
[~2024-03-09] MED LIST changes: +FEBU40TA6; +HYDR25TA88 PO; +PRED1TABL; +RA M500C PO; +TURM500T PO
== END ==
LOC: M RAD 11:33
PROVIDERS: ATTEND Internal Medicine Medical Oncology
DX: D47.2 Monoclonal gammopathy (principal); M47.813 Spondylosis without myelopathy or radiculopathy, cervicothoracic region; M47.816 Spondylosis without myelopathy or radiculopathy, lumbar region

== ENCOUNTER 2024-04-05 16:16 | Outpatient (CLI) | payer MEDICARE, OTHER ==
[~2024-04-05] VITALS: Ht 162.6 cm; Wt 77.8 kg
[~2024-04-05 16:16] MED LIST changes: +ALBUTEROL SULFATE 2.5MG/0.5ML INH NEB SOLN INH PRN; +EPINEPHrine INJ 1 MG/ML 1ML AMP IM PRN; +NS 1,000 ML IV SCH; +diphenhydrAMINE 50MG/ML VIAL IV PRN; +methylPREDNISolone 125MG 2ML VIAL IV PRN
[2024-04-05 16:20] VITALS: BP 136/64; O2SAT 96
[2024-04-05] MEDS: VEDOLIZUMAB 300 MG in NS 250 ML IV ONE (16:37)
[2024-04-05] MEDS ORDERED: HYDROCORTISONE 100MG/2ML VIAL IV ONE (17:00)
[2024-04-05] MEDS ORDERED: diphenhydrAMINE 50MG/ML VIAL IV ONE (17:00)
[2024-04-05 17:16] VITALS: BP 131/78; O2SAT 96
== END 2024-04-05 17:20 ==
LOC: M INFU 16:16
PROVIDERS: ATTEND Internal Medicine Gastroenterology
DX: K50.00 Crohn's disease of small intestine without complications (principal); Z88.8 Allergy status to other drugs, medicaments and biological substances
CPT/HCPCS: 96365; J3380

== ENCOUNTER → 2024-04-10 | Outpatient (REF) | payer MEDICARE, OTHER ==
[~2024-04-10] MED LIST changes: -ALBUTEROL SULFATE 2.5MG/0.5ML INH NEB SOLN INH PRN; -EPINEPHrine INJ 1 MG/ML 1ML AMP IM PRN; -NS 1,000 ML IV SCH; -diphenhydrAMINE 50MG/ML VIAL IV PRN; -methylPREDNISolone 125MG 2ML VIAL IV PRN
== END ==
LOC: M SFHCRHEU 08:42
PROVIDERS: ATTEND Internal Medicine Rheumatology
DX: R52 Pain, unspecified (principal); Z53.9 Procedure and treatment not carried out, unspecified reason

== ENCOUNTER 2024-05-17 16:44 | Outpatient (CLI) | payer MEDICARE, OTHER ==
[~2024-05-17] VITALS: Ht 162.6 cm; Wt 78.0 kg
[~2024-05-17 16:44] MED LIST changes: +ALBUTEROL SULFATE 2.5MG/0.5ML INH NEB SOLN INH PRN; +EPINEPHrine INJ 1 MG/ML 1ML AMP IM PRN; +NS 1,000 ML IV SCH; -VITA500C19 PO; +VITA500C22 PO; +diphenhydrAMINE 50MG/ML VIAL IV PRN; +methylPREDNISolone 125MG 2ML VIAL IV PRN
[2024-05-17 16:50] VITALS: BP 135/64; O2SAT 98
[2024-05-17] MEDS ORDERED: HYDROCORTISONE 100MG/2ML VIAL IV ONE (17:00)
[2024-05-17] MEDS ORDERED: diphenhydrAMINE 50MG/ML VIAL IV ONE (17:00)
[2024-05-17] MEDS: VEDOLIZUMAB 300 MG in NS 250 ML IV ONE (17:05)
[2024-05-17 17:50] VITALS: BP 130/60; O2SAT 96
[2024-05-17 17:54] VITALS: BP 130/60; TEMP 36.7; O2SAT 96
== END 2024-05-17 17:50 ==
LOC: M INFU 16:44
PROVIDERS: ATTEND Internal Medicine Gastroenterology
DX: K50.00 Crohn's disease of small intestine without complications (principal); Z88.8 Allergy status to other drugs, medicaments and biological substances
CPT/HCPCS: 96413; J3380

== ENCOUNTER → 2024-05-24 | Outpatient (CLI) | payer MEDICARE, OTHER ==
[~2024-05-24] MED LIST changes: -ALBUTEROL SULFATE 2.5MG/0.5ML INH NEB SOLN INH PRN; -EPINEPHrine INJ 1 MG/ML 1ML AMP IM PRN; -NS 1,000 ML IV SCH; -diphenhydrAMINE 50MG/ML VIAL IV PRN; -methylPREDNISolone 125MG 2ML VIAL IV PRN
[2024-05-24 17:05] LABS: URIC ACID 5.2 MG/DL (3.7-9.2)
[2024-05-24 17:06] LABS: C REACTIVE PROTEIN QUANTITATIV < 0.40 MG/DL (<1.0)
[2024-05-24 17:08] LABS: ALBUMIN 4.1 G/DL (3.2-5.2); ALKALINE PHOSPHATASE 90 U/L (40-129); ALT/SGPT 39 U/L (7.0-40); AST/SGOT 25 U/L (<34); BILIRUBIN,TOTAL 0.8 MG/DL (0.3-1.2); BLOOD UREA NITROGEN 38 MG/DL (9-23); CALCIUM LEVEL 10.2 MG/DL (8.3-10.6); CARBON DIOXIDE LEVEL 29 MMOL/L (20-31); CHLORIDE LEVEL 103 MMOL/L (98-107); CREATININE FOR GFR 1.14 MG/DL (0.70-1.30); GLOMERULAR FILTRATION RATE > 60.0 (>42); GLUCOSE, FASTING 97 MG/DL (74-106); POTASSIUM SERUM 4.5 MMOL/L (3.5-5.1); SODIUM LEVEL 138 MMOL/L (136-145); TOTAL PROTEIN 7.1 G/DL (5.7-8.2)
[2024-05-24 17:14] LABS: BASO # 0.1 10^3/uL (0.0-0.2); BASO % 0.4 % (0.0-1.0); EOS % 0.1 % (0.0-3.0); HEMATOCRIT 39.2 % (42.0-52.0); HEMOGLOBIN 13.1 g/dl (13.5-17.5); LYMPH # 1.2 10^3/uL (1.5-5.0); LYMPH % 7.3 % (24.0-44.0); MEAN CORPUSCULAR HEMOGLOBIN 32.1 pg (27.0-33.0); MEAN CORPUSCULAR HGB CONC 33.4 g/dl (32.0-36.5); MEAN CORPUSCULAR VOLUME 96.1 fl (80.0-96.0); MONO # 0.6 10^3/uL (0.0-0.8); NEUTROPHILS # 13.8 10^3/uL (1.5-8.5); NEUTROPHILS % 86.3 % (36.0-66.0); PLATELET COUNT, AUTOMATED 278 10^3/uL (150-450); RED BLOOD COUNT 4.08 10^6/uL (4.30-6.10); WHITE BLOOD COUNT 15.9 10^3/uL (4.0-10.0)
[2024-05-24 17:26] LABS: ERYTHROCYTE SEDIMENTATION RATE 8 mm/hr (0-20)
== END ==
LOC: M WUC 13:44
PROVIDERS: ATTEND Internal Medicine Rheumatology
DX: R52 Pain, unspecified (principal); K50.818 Crohn's disease of both small and large intestine with other complication; M1A.39X0 Chronic gout due to renal impairment, multiple sites, without tophus (tophi); R21 Rash and other nonspecific skin eruption

== ENCOUNTER 2024-06-28 16:57 | Outpatient (CLI) | payer MEDICARE, OTHER ==
[~2024-06-28] VITALS: Ht 162.6 cm; Wt 80.0 kg
[2024-06-28 16:50] VITALS: BP 143/71; O2SAT 96
[~2024-06-28 16:57] MED LIST changes: +ALBUTEROL SULFATE 2.5MG/0.5ML INH NEB SOLN INH PRN; +EPINEPHrine INJ 1 MG/ML 1ML AMP IM PRN; +NS 1,000 ML IV SCH; +diphenhydrAMINE 50MG/ML VIAL IV PRN; +methylPREDNISolone 125MG 2ML VIAL IV PRN
[2024-06-28] MEDS ORDERED: HYDROCORTISONE 100MG/2ML VIAL IV ONE (17:00)
[2024-06-28] MEDS ORDERED: diphenhydrAMINE 50MG/ML VIAL IV ONE (17:00)
[2024-06-28] MEDS: VEDOLIZUMAB 300 MG in NS 250 ML IV ONE (17:32)
[2024-06-28 18:10] VITALS: BP 127/67; O2SAT 98
== END 2024-06-28 18:10 | disposition home or self-care (01) ==
LOC: M INFU 16:57
PROVIDERS: ATTEND Internal Medicine Gastroenterology
DX: K50.00 Crohn's disease of small intestine without complications (principal); Z79.899 Other long term (current) drug therapy; Z88.8 Allergy status to other drugs, medicaments and biological substances
CPT/HCPCS: 96365; J3380

== ENCOUNTER 2024-08-09 16:40 | Outpatient (CLI) | payer MEDICARE, OTHER ==
[~2024-08-09] VITALS: Ht 162.6 cm; Wt 81.0 kg
[2024-08-09 14:45] VITALS: BP 115/65; O2SAT 96
[2024-08-09 16:40] VITALS: BP 115/65; O2SAT 96
[~2024-08-09 16:40] MED LIST changes: +NS (Normal Saline) 0.9% 1,000 ML IV SCH; -NS 1,000 ML IV SCH
[2024-08-09] MEDS: VEDOLIZUMAB 300 MG in NS 250 ML IV ONE (17:25)
[2024-08-09] MEDS: HYDROCORTISONE 100MG/2ML VIAL IV ONE (17:34)
[2024-08-09] MEDS: diphenhydrAMINE 50MG/ML VIAL IV ONE (17:35)
[2024-08-09 18:10] VITALS: BP 124/68; O2SAT 97
== END 2024-08-09 18:10 ==
LOC: M INFU 16:40
PROVIDERS: ATTEND Internal Medicine Gastroenterology
DX: K50.00 Crohn's disease of small intestine without complications (principal); Z88.8 Allergy status to other drugs, medicaments and biological substances
CPT/HCPCS: 96365; J3380

== ENCOUNTER 2024-09-20 16:50 | Outpatient (CLI) | payer MEDICARE, OTHER ==
[~2024-09-20] VITALS: Ht 162.6 cm; Wt 79.5 kg
[2024-09-20 16:50] VITALS: BP 136/64; O2SAT 97
[~2024-09-20 16:50] MED LIST changes: -NS (Normal Saline) 0.9% 1,000 ML IV SCH
[2024-09-20] MEDS ORDERED: diphenhydrAMINE 50MG/ML VIAL IV ONE (17:00)
[2024-09-20] MEDS ORDERED: NS (Normal Saline) 0.9% 1,000 ML IV SCH (17:00)
[2024-09-20] MEDS: VEDOLIZUMAB 300 MG in NS 250 ML IV ONE (17:13)
[2024-09-20 17:54] VITALS: BP 133/62; O2SAT 97
== END 2024-09-20 17:55 ==
LOC: M INFU 16:50
PROVIDERS: ATTEND Internal Medicine Gastroenterology
DX: K50.00 Crohn's disease of small intestine without complications (principal); Z88.8 Allergy status to other drugs, medicaments and biological substances
CPT/HCPCS: 96413; J3380

== ENCOUNTER 2024-11-01 16:50 | Outpatient (CLI) | payer MEDICARE, OTHER ==
[~2024-11-01] VITALS: Ht 162.6 cm; Wt 79.5 kg
[~2024-11-01 16:50] MED LIST changes: +ALBUTEROL SULFATE 2.5MG/0.5ML INH CONCENTRATE NEB SOLN INH PRN; -ALBUTEROL SULFATE 2.5MG/0.5ML INH NEB SOLN INH PRN; +NS (Normal Saline) 0.9% 1,000 ML IV SCH
[2024-11-01] MEDS ORDERED: diphenhydrAMINE 50MG/ML VIAL IV ONE (17:00)
[2024-11-01 17:19] VITALS: BP 133/62; O2SAT 99
[2024-11-01] MEDS: VEDOLIZUMAB 300 MG in NS 250 ML IV ONE (17:43)
[2024-11-01 18:10] VITALS: BP 127/64; O2SAT 100
== END 2024-11-01 18:20 ==
LOC: M INFU 16:50
PROVIDERS: ATTEND Internal Medicine Gastroenterology
DX: K50.90 Crohn's disease, unspecified, without complications (principal); Z88.8 Allergy status to other drugs, medicaments and biological substances
CPT/HCPCS: 96365; J3380

== ENCOUNTER 2024-12-13 16:44 | Outpatient (CLI) | payer MEDICARE, OTHER ==
[~2024-12-13] VITALS: Ht 162.6 cm; Wt 77.3 kg
[~2024-12-13 16:44] MED LIST changes: -NS (Normal Saline) 0.9% 1,000 ML IV SCH; +PRED-1142; -PRED1TABL
[2024-12-13] MEDS: VEDOLIZUMAB 300 MG in NS 250 ML IV ONE (17:15)
[2024-12-13] MEDS: diphenhydrAMINE 50MG/ML VIAL IV ONE (17:21)
[2024-12-13 17:50] VITALS: BP 138/64; O2SAT 96
== END 2024-12-13 17:50 ==
LOC: M INFU 16:44
PROVIDERS: ATTEND Internal Medicine Gastroenterology
DX: K50.919 Crohn's disease, unspecified, with unspecified complications (principal); Z88.8 Allergy status to other drugs, medicaments and biological substances
CPT/HCPCS: 96413; J3380

== ENCOUNTER 2025-01-24 16:44 | Outpatient (CLI) | payer MEDICARE, OTHER ==
[~2025-01-24] VITALS: Ht 162.6 cm; Wt 77.4 kg
[~2025-01-24 16:44] MED LIST changes: +ALBUTEROL SULFATE 2.5 MG/0.5 ML INH CONCENTRATE NEB SOLN INH PRN; -ALBUTEROL SULFATE 2.5MG/0.5ML INH CONCENTRATE NEB SOLN INH PRN; +CENT1TAB2 PO; +METO1TAB32; +METO1TAB32 PO; +METO1TAB33 PO; +PRED5PAK PO; +SPIR-10 PO; +VITA200012 PO; +diphenhydrAMINE 50 MG/ML VIAL IV PRN; -diphenhydrAMINE 50MG/ML VIAL IV PRN; -methylPREDNISolone 125MG 2ML VIAL IV PRN
[2025-01-24] MEDS ORDERED: NS (Normal Saline) 0.9% 1,000 ML IV SCH (17:00)
[2025-01-24] MEDS ORDERED: diphenhydrAMINE 50 MG/ML VIAL IV ONE (17:00)
[2025-01-24 17:28] VITALS: BP 135/60; O2SAT 99
[2025-01-24] MEDS: VEDOLIZUMAB 300 MG in NS 250 ML IV ONE (17:32)
[2025-01-24 18:09] VITALS: BP 128/61; O2SAT 96
== END 2025-01-24 18:10 ==
LOC: M INFU 16:44
PROVIDERS: ATTEND Internal Medicine Gastroenterology
DX: K50.919 Crohn's disease, unspecified, with unspecified complications (principal); Z88.8 Allergy status to other drugs, medicaments and biological substances
CPT/HCPCS: 96413; J3380

== ENCOUNTER → 2025-03-07 | Outpatient (CLI) | payer MEDICARE, OTHER ==
[~2025-03-07] VITALS: Ht 162.6 cm; Wt 76.0 kg
[2025-03-07 17:05] VITALS: BP 133/68; O2SAT 97
[2025-03-07] MEDS: diphenhydrAMINE 50 MG/ML VIAL IV ONE (17:20)
[2025-03-07] MEDS: VEDOLIZUMAB 300 MG in NS 250 ML IV ONE (17:20)
[2025-03-07] MEDS: HYDROCORTISONE 100 MG/2 ML VIAL IV ONE (17:20)
[2025-03-07 18:03] VITALS: BP 121/62; O2SAT 99
== END ==
LOC: M INFU 16:48
PROVIDERS: ATTEND Internal Medicine Gastroenterology
DX: K50.90 Crohn's disease, unspecified, without complications (principal); Z88.8 Allergy status to other drugs, medicaments and biological substances
CPT/HCPCS: 96413; J3380

== ENCOUNTER 2025-04-18 16:45 | Outpatient (CLI) | payer MEDICARE, OTHER ==
[~2025-04-18] VITALS: Ht 162.6 cm; Wt 77.0 kg
[~2025-04-18 16:45] MED LIST changes: -COLC0.6T47 PO; +COLC0.6T53 PO; +NS (Normal Saline) 0.9% 1,000 ML IV SCH
[2025-04-18 16:55] VITALS: BP 144/70; O2SAT 98
[2025-04-18] MEDS ORDERED: diphenhydrAMINE 50 MG/ML VIAL IV ONE (17:00)
[2025-04-18] MEDS: VEDOLIZUMAB 300 MG in NS 250 ML IV ONE (17:10)
[2025-04-18 17:50] VITALS: BP 142/63; O2SAT 99
== END 2025-04-18 17:50 ==
LOC: M INFU 16:45
PROVIDERS: ATTEND Internal Medicine Gastroenterology
DX: K50.00 Crohn's disease of small intestine without complications (principal); Z88.8 Allergy status to other drugs, medicaments and biological substances
CPT/HCPCS: 96413; J3380

== ENCOUNTER 2025-05-30 17:01 | Outpatient (CLI) | payer MEDICARE, OTHER ==
[~2025-05-30] VITALS: Ht 162.6 cm; Wt 77.0 kg
[~2025-05-30 17:01] MED LIST changes: -NS (Normal Saline) 0.9% 1,000 ML IV SCH; +diphenhydrAMINE 50 MG/ML VIAL IV ONE
[2025-05-30 17:05] VITALS: BP 139/62; O2SAT 98
[2025-05-30] MEDS: VEDOLIZUMAB 300 MG in NS 250 ML IV ONE (17:16)
[2025-05-30 17:50] VITALS: BP 123/57; O2SAT 97
== END 2025-05-30 17:52 | disposition home or self-care (01) ==
LOC: M INFU 17:01
PROVIDERS: ATTEND Internal Medicine Gastroenterology
DX: K50.00 Crohn's disease of small intestine without complications (principal); Z88.8 Allergy status to other drugs, medicaments and biological substances
CPT/HCPCS: 96413; J3380

== ENCOUNTER 2025-07-11 16:42 | Outpatient (CLI) | payer MEDICARE, OTHER ==
[~2025-07-11] VITALS: Ht 162.6 cm; Wt 77.0 kg
[~2025-07-11 16:42] MED LIST changes: +SYNT75TA; -diphenhydrAMINE 50 MG/ML VIAL IV ONE
[2025-07-11 16:50] VITALS: BP 130/59; O2SAT 97
[2025-07-11] MEDS: diphenhydrAMINE 50 MG/ML VIAL IV ONE (17:29)
[2025-07-11] MEDS: VEDOLIZUMAB 300 MG in NS 250 ML IV ONE (17:31)
[2025-07-11 18:12] VITALS: BP 130/62; O2SAT 98
== END 2025-07-11 18:14 | disposition home or self-care (01) ==
LOC: M INFU 16:42
PROVIDERS: ATTEND Internal Medicine Gastroenterology
DX: K50.90 Crohn's disease, unspecified, without complications (principal); Z88.8 Allergy status to other drugs, medicaments and biological substances
CPT/HCPCS: 36415; 80053; 82607; 82728; 82746; 82784; 83521; 83550; 84155; 84165; 85025; 86334; 96365; G0463; J3380